=== PATIENT | female | born 1930 | race Caucasian/White ===

== ENCOUNTER → 2016-05-22 | Outpatient (CLI) | payer MEDICARE, OTHER ==
[~2016-05-22] MED LIST: AMBIEN 5MG TABLE5 MG; AMBIEN 5MG TABLE5 MG PO; ASPIRIN 81M81 MG/TA2 PO; AUGMENTIN XR 101 TER PO; BENICAR 20MG TA20 MG PO; BENICAR HCT 251 TAB PO; BETAPACE 80MG80 MG PO; BUMEX 1MG TA1 MG/TA1 PO; BUMEX0.5 MG PO; BYSTOLIC5 MG PO; CALCIUM 500500 M2 PO; CALCIUM 500500 MG PO; CLARITIN 1010 MG/TAB PO; COLACE 100100 MG/CAP PO; COMBIVENT INH14.7 GM IH; CORDARONE200 MG/TAB PO; COUMADIN 2MG2 MG/TAB PO; COUMADIN 3MG3 MG/TAB PO; COUMADIN 5MG5 MG/TAB PO; COUMADIN4 MG PO; COZAAR 50MG50 MG/TAB PO; DEMADEX 20MG20 M1 PO; DIOVAN PO; DOXYCYCLINE 10100 MG PO; FLAGYL500 MG PO; FLOVENT 110MCG7.9 GM IH; HCTZ 25MG TAB25 MG PO; HCTZ PO; HCTZ12.5TAB PO; KLOR-CON 1010 MEQ PO; LASIX 20MG TABL20 MG PO; LASIX 40MG TABL40 MG PO; LEVAQUIN 750MG750 M1 PO; LEVOTHYROXINE0.05 MG PO; LEVOXYL0.05 MG PO; LOPRESSOR 225 MG/TAB PO; LOVENOX100 MG/ML SC; MIRAPEX0.5 MG PO; MITIGARE0.6 MG; MULTIVITAMIN FO1 CAP PO; MULTIVITAMIN1 CTB PO; NASONEX SPRAY17 GM NS; NEXIUM 40MG40 MG PO; NORCO 325 MG-51 TAB PO; NORVASC2.5 MG PO; OSCAL 500 TAB500 MG PO; OYST CAL PO; PHILLIPS1 TAB PO; PREDNISONE 5MG5 MG PO; PREDNISONE1 MG PO; PREDNISONE20 MG PO; PREVACID 30MG30 M1 PO; PRIL40; PRIL40 PO; PRILOSEC 10MG10 MG PO; PRILOSEC 20MG20 MG PO; PROAIR HFA0.09 MG/AC IH; PROBIOTIC FORMU1 CAP PO; PROTONIX20 MG PO; RT SPIRIVA18 MCG IH; THEO-24 20200 MG/CAP PO; THEO-DUR 1100 MG/TAB PO; THEOPHYLINE; THYROXINE; TOPROL XL 25MG25 MG PO; TOPROL XL100 MG PO; TUMS500 MG PO; TYLENOL 325MG325 MG PO; TYLENOL PM 5001 CAP PO; ULTRAM 50MG TAB50 MG PO; VENTOLIN0.09 MG IH; VITAMIN C500 MG PO; ZAROXOLYN 2.52.5 MG PO; ZOLPIDEM TART5 MG PO; [UNRECOGNIZED DRUG - OTHER]
[2016-05-22 15:48] LABS: CALCIUM 9.4 mg/dL (8.4-10.2); CREATININE, serum 1.58 mg/dL (0.52-1.25); POTASSIUM 3.6 mmol/L (3.4-5.0)
== END ==
LOC: COL.LAB 14:39
PROVIDERS: Internal Medicine Nephrology
DX: N18.3 Chronic kidney disease, stage 3 (moderate) (principal)

== ENCOUNTER → 2016-08-13 | Outpatient (CLI) | payer MEDICARE, OTHER ==
[2016-08-13 12:49] LABS: CALCIUM 9.5 mg/dL (8.4-10.2); CREATININE, serum 1.43 mg/dL (0.52-1.25); POTASSIUM 4.1 mmol/L (3.4-5.0)
== END ==
LOC: COL.LAB 11:58
PROVIDERS: Internal Medicine Nephrology
DX: N18.2 Chronic kidney disease, stage 2 (mild) (principal)

== ENCOUNTER → 2016-08-30 | Outpatient (CLI) | payer MEDICARE, OTHER ==
[2016-08-30 13:39] LABS: CALCIUM 9.5 mg/dL (8.4-10.2); CREATININE, serum 1.5 mg/dL (0.52-1.25); POTASSIUM 3.5 mmol/L (3.4-5.0)
== END ==
LOC: COL.LAB 13:02
PROVIDERS: Internal Medicine Clinical Cardiac Electrophysiology
DX: N18.3 Chronic kidney disease, stage 3 (moderate) (principal)

== ENCOUNTER 2016-09-08 00:52 | Inpatient (IN) | payer MEDICARE, OTHER ==
[2016-09-08] VITALS (7 sets, daily range): BP systolic 115–155; BP diastolic 61–95; PULSE 88–110; TEMP 97.4–98
[~2016-09-08] VITALS: Ht 165.1 cm; Wt 73.0 kg
[~2016-09-08 00:52] MED LIST changes: -BUMEX 1MG TA1 MG/TA1 PO; -BUMEX0.5 MG PO; -CLARITIN 1010 MG/TAB PO; -DEMADEX 20MG20 M1 PO; -DOXYCYCLINE 10100 MG PO; -NASONEX SPRAY17 GM NS; -OSCAL 500 TAB500 MG PO; -PRILOSEC 20MG20 MG PO; -THEO-DUR 1100 MG/TAB PO; -TOPROL XL100 MG PO; -ZAROXOLYN 2.52.5 MG PO
[2016-09-08 01:33] LABS: ALLEN TEST NO; ARTERIAL BLD GAS O2 SATURATION 97.3 % (92-100); ARTERIAL BLOOD GAS BASE EXCESS 1.1 (-2-2); ARTERIAL BLOOD GAS HCO3 26.5 meq/L (22-26); ARTERIAL BLOOD GAS PO2 106.9 mmHg (80-100); ARTERIAL BLOOD GAS pH 7.38 (7.35-7.45); ATS? YES; OXYHEMOGLOBIN 97.1 %
[2016-09-08 01:56] LABS: BASO % 0.4 % (0.0-2.0); EOS # 0.2 (0.0-0.7); EOS % 1.7 % (0-4.0); GRAN % 70.6 % (42.2-75.2); LYMPH # 2.1 (1.2-3.4); LYMPH % 21.7 % (20.0-51.0); MEAN CELL VOLUME 88 fl (80.0-100.0); MEAN CORPUSCULAR HGB CONC 31 g/dl (33.0-37.0); MEAN PLATELET VOLUME 12.6 fl (7.4-10.4); MONO # 0.5 (0.1-0.6); MONO % 5.2 % (1.7-9.3); PLATELET COUNT 142 K/mm3 (130-400); RED BLOOD COUNT 4.11 M/mm3 (4.10-5.30); REDCELL DISTRIBUTION WIDTH-CV 18.5 % (11.5-14.5); WHITE BLOOD COUNT 9.9 K/mm3 (4.8-10.8)
[2016-09-08 01:58] LABS: HEMATOCRIT 36.1 % (37.0-47.0); HEMOGLOBIN 11.1 g/dl (12.5-16.0); MEAN CORPUSCULAR HEMOGLOBIN 27 pg (27.0-31.0)
[2016-09-08] MEDS ORDERED: TOPROL XL100 MG PO (01:59)
[2016-09-08] MEDS ORDERED: PRILOSEC 20MG20 MG PO (01:59)
[2016-09-08] MEDS ORDERED: THEO-DUR 1100 MG/TAB PO (02:00)
[2016-09-08] MEDS ORDERED: VITAMIN C500 MG PO (02:01)
[2016-09-08] MEDS ORDERED: DEMADEX 20MG20 M1 PO (02:01)
[2016-09-08 02:02] LABS: INR 2.9 (0.8-3.0); PROTHROMBIN TIME 32.7 SECONDS (9.7-12.8)
[2016-09-08 02:05] LABS: ADJUSTED CALCIUM 10.3 mg/dL (8.4-10.2); ALBUMIN 3.9 gm/dL (3.5-5.0); BILIRUBIN,TOTAL 0.8 mg/dL (0.0-1.0); CALCIUM 10.2 mg/dL (8.4-10.2); CREATININE, serum 1.27 mg/dL (0.52-1.25); PARTIAL THROMBOPLASTIN TIME 37.5 SECONDS (26.0-37.0); POTASSIUM 4.8 mmol/L (3.4-5.0); TOTAL PROTEIN 7.1 gm/dL (6.4-8.2)
[2016-09-08] MEDS ORDERED: COZAAR 50MG50 MG/TAB PO (02:06)
[2016-09-08] MEDS ORDERED: ZAROXOLYN 2.52.5 MG PO (02:07)
[2016-09-08 02:16] LABS: TROPONIN-I 0.033 ng/mL (0.000-0.034)
[2016-09-08] MEDS ORDERED: TYLENOL 325MG325 MG PO (03:46)
[2016-09-08] MEDS ORDERED: OSCAL 500 TAB500 MG PO (03:51)
[2016-09-08] MEDS ORDERED: COUMADIN4 MG PO (04:00)
[2016-09-09 00:10] VITALS: BP 133/72; PULSE 91; TEMP 97.5
[2016-09-09 04:29] VITALS: BP 145/67; PULSE 91; TEMP 97.4
[2016-09-09 07:28] LABS: CALCIUM 9.7 mg/dL (8.4-10.2); CREATININE, serum 1.5 mg/dL (0.52-1.25); MAGNESIUM 1.7 mg/dL (1.6-2.3); POTASSIUM 3.9 mmol/L (3.4-5.0)
[2016-09-09 07:31] LABS: BASO % 0.4 % (0.0-2.0); EOS # 0.2 (0.0-0.7); EOS % 2.4 % (0-4.0); GRAN # 6.5 (1.4-6.5); GRAN % 70.8 % (42.2-75.2); HEMATOCRIT 35.7 % (37.0-47.0); HEMOGLOBIN 10.7 g/dl (12.5-16.0); LYMPH # 1.7 (1.2-3.4); LYMPH % 18.2 % (20.0-51.0); MEAN CELL VOLUME 89 fl (80.0-100.0); MEAN CORPUSCULAR HEMOGLOBIN 27 pg (27.0-31.0); MEAN CORPUSCULAR HGB CONC 30 g/dl (33.0-37.0); MEAN PLATELET VOLUME 10.5 fl (7.4-10.4); MONO # 0.7 (0.1-0.6); MONO % 7.8 % (1.7-9.3); PLATELET COUNT 210 K/mm3 (130-400); RED BLOOD COUNT 4.03 M/mm3 (4.10-5.30); REDCELL DISTRIBUTION WIDTH-CV 18.4 % (11.5-14.5); WHITE BLOOD COUNT 9.2 K/mm3 (4.8-10.8)
[2016-09-09 07:35] VITALS: BP 124/65; PULSE 90; TEMP 97.9
[2016-09-09] MEDS ORDERED: BUMEX0.5 MG PO (09:46)
[2016-09-09 10:38] LABS: PROTHROMBIN TIME 34.4 SECONDS (9.7-12.8)
[2016-09-09 11:02] VITALS: BP 99/59; PULSE 83
== END 2016-09-09 14:04 | disposition home or self-care (01) | DRG 291 ==
LOC: COL.ER 00:52 → MEDICAL 02:45
PROVIDERS: Emergency Medicine; Family Medicine; Internal Medicine
DX: I13.0 Hypertensive heart and chronic kidney disease with heart failure and stage 1 through stage 4 chronic kidney disease, or unspecified chronic kidney disease (principal); I50.31 Acute diastolic (congestive) heart failure; J96.11 Chronic respiratory failure with hypoxia; E03.9 Hypothyroidism, unspecified; Z66 Do not resuscitate; J44.9 Chronic obstructive pulmonary disease, unspecified; N18.3 Chronic kidney disease, stage 3 (moderate); Z79.2 Long term (current) use of antibiotics; Z86.718 Personal history of other venous thrombosis and embolism; Z95.0 Presence of cardiac pacemaker; Z95.3 Presence of xenogenic heart valve; Z87.891 Personal history of nicotine dependence
CPT/HCPCS: 99223-AI; 99239; J1940

== ENCOUNTER 2016-10-05 23:25 | Inpatient (IN) | payer MEDICARE, OTHER ==
[~2016-10-05] VITALS: Ht 152.5 cm; Wt 70.3 kg
[~2016-10-05 23:25] MED LIST changes: +BUMEX0.5 MG PO; +DEMADEX 20MG20 M1 PO; +OSCAL 500 TAB500 MG PO; +PRILOSEC 20MG20 MG PO; +THEO-DUR 1100 MG/TAB PO; +TOPROL XL100 MG PO; +ZAROXOLYN 2.52.5 MG PO
[2016-10-06 00:06] LABS: BASO % 0.6 % (0.0-2.0); EOS # 0.2 (0.0-0.7); EOS % 2.1 % (0-4.0); GRAN # 4.9 (1.4-6.5); GRAN % 70.8 % (42.2-75.2); LYMPH # 1.4 (1.2-3.4); LYMPH % 19.9 % (20.0-51.0); MEAN CELL VOLUME 89 fl (80.0-100.0); MEAN CORPUSCULAR HGB CONC 31 g/dl (33.0-37.0); MEAN PLATELET VOLUME 11.4 fl (7.4-10.4); MONO # 0.4 (0.1-0.6); MONO % 6.2 % (1.7-9.3); PLATELET COUNT 199 K/mm3 (130-400); RED BLOOD COUNT 3.74 M/mm3 (4.10-5.30)
[2016-10-06 00:07] LABS: HEMATOCRIT 33.1 % (37.0-47.0); HEMOGLOBIN 10.3 g/dl (12.5-16.0); MEAN CORPUSCULAR HEMOGLOBIN 28 pg (27.0-31.0)
[2016-10-06 00:10] LABS: INR 2.9 (0.8-3.0); PROTHROMBIN TIME 32.7 SECONDS (9.7-12.8)
[2016-10-06 00:12] LABS: PARTIAL THROMBOPLASTIN TIME 39.4 SECONDS (26.0-37.0)
[2016-10-06 00:18] LABS: ADJUSTED CALCIUM 9.4 mg/dL (8.4-10.2); ALBUMIN 3.9 gm/dL (3.5-5.0); BILIRUBIN,TOTAL 0.5 mg/dL (0.0-1.0); CALCIUM 9.3 mg/dL (8.4-10.2); CREATININE, serum 1.82 mg/dL (0.52-1.25); POTASSIUM 3.8 mmol/L (3.4-5.0); TOTAL PROTEIN 6.9 gm/dL (6.4-8.2)
[2016-10-06 00:34] LABS: TROPONIN-I 0.05 ng/mL (0.000-0.034)
[2016-10-06 03:32] VITALS: BP 131/67; PULSE 93; TEMP 97.9
[2016-10-06] MEDS ORDERED: CLARITIN 1010 MG/TAB PO (04:00)
[2016-10-06] MEDS ORDERED: NASONEX SPRAY17 GM NS (04:01)
[2016-10-06 08:00] LABS: CALCIUM 9.5 mg/dL (8.4-10.2); CREATININE, serum 1.74 mg/dL (0.52-1.25); POTASSIUM 3.6 mmol/L (3.4-5.0)
[2016-10-06 08:17] LABS: TROPONIN-I 0.055 ng/mL (0.000-0.034)
[2016-10-06 08:36] VITALS: BP 112/67; PULSE 85; TEMP 97.5
[2016-10-06 13:10] VITALS: BP 103/59; PULSE 88; TEMP 97.9
[2016-10-06 16:59] VITALS: BP 134/83; PULSE 64; TEMP 98.1
[2016-10-06 20:26] VITALS: BP 142/68; PULSE 41; TEMP 97.9
[2016-10-07] VITALS (7 sets, daily range): BP systolic 100–122; BP diastolic 50–83; PULSE 40–82; TEMP 97.5–98.6
[2016-10-07 07:12] LABS: BASO % 0.5 % (0.0-2.0); EOS # 0.1 (0.0-0.7); EOS % 1.7 % (0-4.0); GRAN # 5.5 (1.4-6.5); GRAN % 66.7 % (42.2-75.2); LYMPH % 23.6 % (20.0-51.0); MEAN CELL VOLUME 89 fl (80.0-100.0); MEAN CORPUSCULAR HGB CONC 30 g/dl (33.0-37.0); MEAN PLATELET VOLUME 11.2 fl (7.4-10.4); MONO # 0.6 (0.1-0.6); MONO % 7.1 % (1.7-9.3); PLATELET COUNT 191 K/mm3 (130-400); RED BLOOD COUNT 3.65 M/mm3 (4.10-5.30); WHITE BLOOD COUNT 8.3 K/mm3 (4.8-10.8)
[2016-10-07 07:13] LABS: HEMATOCRIT 32.6 % (37.0-47.0); HEMOGLOBIN 9.9 g/dl (12.5-16.0); MEAN CORPUSCULAR HEMOGLOBIN 27 pg (27.0-31.0)
[2016-10-07 07:26] LABS: INR 2.7 (0.8-3.0); PROTHROMBIN TIME 31.4 SECONDS (9.7-12.8)
[2016-10-07 07:29] LABS: CALCIUM 9.2 mg/dL (8.4-10.2); CREATININE, serum 1.79 mg/dL (0.52-1.25); POTASSIUM 3.4 mmol/L (3.4-5.0)
[2016-10-08] VITALS (12 sets, daily range): BP systolic 75–117; BP diastolic 42–62; PULSE 53–83; TEMP 97.4–98.7
[2016-10-08 07:06] LABS: BASO # 0.1 (0.0-0.2); BASO % 0.7 % (0.0-2.0); EOS # 0.3 (0.0-0.7); INR 2.8 (0.8-3.0); LYMPH # 2.1 (1.2-3.4); LYMPH % 25.5 % (20.0-51.0); MEAN CELL VOLUME 89 fl (80.0-100.0); MEAN CORPUSCULAR HGB CONC 31 g/dl (33.0-37.0); MEAN PLATELET VOLUME 10.6 fl (7.4-10.4); MONO # 0.6 (0.1-0.6); MONO % 7.6 % (1.7-9.3); PLATELET COUNT 214 K/mm3 (130-400); PROTHROMBIN TIME 32.1 SECONDS (9.7-12.8); RED BLOOD COUNT 4.05 M/mm3 (4.10-5.30); REDCELL DISTRIBUTION WIDTH-CV 18.3 % (11.5-14.5)
[2016-10-08 07:15] LABS: HEMATOCRIT 36.1 % (37.0-47.0); HEMOGLOBIN 11.1 g/dl (12.5-16.0); MEAN CORPUSCULAR HEMOGLOBIN 27 pg (27.0-31.0)
[2016-10-08 07:19] LABS: CALCIUM 9.4 mg/dL (8.4-10.2); CREATININE, serum 1.81 mg/dL (0.52-1.25)
[2016-10-09 03:14] VITALS: BP 122/64; PULSE 57; TEMP 97.1
[2016-10-09 06:28] LABS: BASO # 0.1 (0.0-0.2); BASO % 0.7 % (0.0-2.0); EOS # 0.4 (0.0-0.7); EOS % 5.2 % (0-4.0); GRAN # 4.2 (1.4-6.5); GRAN % 59.7 % (42.2-75.2); LYMPH # 1.9 (1.2-3.4); LYMPH % 26.9 % (20.0-51.0); MEAN CELL VOLUME 90 fl (80.0-100.0); MEAN CORPUSCULAR HGB CONC 30 g/dl (33.0-37.0); MEAN PLATELET VOLUME 10.6 fl (7.4-10.4); MONO # 0.5 (0.1-0.6); MONO % 7.2 % (1.7-9.3); PLATELET COUNT 215 K/mm3 (130-400); RED BLOOD COUNT 3.71 M/mm3 (4.10-5.30); REDCELL DISTRIBUTION WIDTH-CV 18.4 % (11.5-14.5)
[2016-10-09 06:33] LABS: INR 2.8 (0.8-3.0); PROTHROMBIN TIME 32.2 SECONDS (9.7-12.8)
[2016-10-09 06:46] LABS: HEMATOCRIT 33.2 % (37.0-47.0); HEMOGLOBIN 10.1 g/dl (12.5-16.0); MEAN CORPUSCULAR HEMOGLOBIN 27 pg (27.0-31.0)
[2016-10-09 06:52] LABS: CALCIUM 9.2 mg/dL (8.4-10.2); CREATININE, serum 2.06 mg/dL (0.52-1.25); POTASSIUM 4.2 mmol/L (3.4-5.0)
[2016-10-09 07:39] VITALS: BP 124/78; PULSE 79; TEMP 97
[2016-10-09 11:58] VITALS: BP 105/55; PULSE 73
[2016-10-09 15:39] VITALS: BP 117/59; PULSE 70; TEMP 98
[2016-10-09 20:04] VITALS: BP 114/49; PULSE 74; TEMP 98.2
[2016-10-10 00:08] VITALS: BP 101/55; PULSE 80; TEMP 97.2
[2016-10-10 03:18] VITALS: BP 114/47; PULSE 69; TEMP 98
[2016-10-10 07:08] LABS: BASO % 0.4 % (0.0-2.0); EOS # 0.3 (0.0-0.7); EOS % 3.6 % (0-4.0); GRAN # 4.8 (1.4-6.5); GRAN % 63.3 % (42.2-75.2); LYMPH % 26.7 % (20.0-51.0); MEAN CELL VOLUME 90 fl (80.0-100.0); MEAN CORPUSCULAR HGB CONC 30 g/dl (33.0-37.0); MEAN PLATELET VOLUME 11.3 fl (7.4-10.4); MONO # 0.4 (0.1-0.6); MONO % 5.7 % (1.7-9.3); PLATELET COUNT 226 K/mm3 (130-400); RED BLOOD COUNT 3.76 M/mm3 (4.10-5.30); REDCELL DISTRIBUTION WIDTH-CV 18.4 % (11.5-14.5); WHITE BLOOD COUNT 7.6 K/mm3 (4.8-10.8)
[2016-10-10 07:12] LABS: CALCIUM 9.4 mg/dL (8.4-10.2); CREATININE, serum 2.08 mg/dL (0.52-1.25); POTASSIUM 4.1 mmol/L (3.4-5.0)
[2016-10-10 07:15] LABS: INR 2.9 (0.8-3.0); PROTHROMBIN TIME 33.7 SECONDS (9.7-12.8)
[2016-10-10 07:19] VITALS: BP 107/48; PULSE 76; TEMP 97.3
[2016-10-10 07:23] LABS: HEMATOCRIT 33.8 % (37.0-47.0); HEMOGLOBIN 10.2 g/dl (12.5-16.0); MEAN CORPUSCULAR HEMOGLOBIN 27 pg (27.0-31.0)
[2016-10-10] MEDS ORDERED: BUMEX 1MG TA1 MG/TA1 PO (10:36)
[2016-10-10 11:45] VITALS: BP 121/64; PULSE 76; TEMP 97.5
== END 2016-10-10 12:30 | disposition home health service (06) | DRG 291 ==
LOC: COL.ER 23:25 → MEDICAL 10-06 03:02
PROVIDERS: Family Medicine; Internal Medicine Cardiovascular Disease; Nurse Practitioner Family
DX: I13.0 Hypertensive heart and chronic kidney disease with heart failure and stage 1 through stage 4 chronic kidney disease, or unspecified chronic kidney disease (principal); I50.33 Acute on chronic diastolic (congestive) heart failure; J96.11 Chronic respiratory failure with hypoxia; N18.3 Chronic kidney disease, stage 3 (moderate); J44.9 Chronic obstructive pulmonary disease, unspecified; E03.9 Hypothyroidism, unspecified; D64.9 Anemia, unspecified; I20.9 Angina pectoris, unspecified; Z66 Do not resuscitate; I48.2 Chronic atrial fibrillation; Z86.718 Personal history of other venous thrombosis and embolism; Z87.891 Personal history of nicotine dependence; Z79.01 Long term (current) use of anticoagulants; Z95.3 Presence of xenogenic heart valve
CPT/HCPCS: 99223-AI; 99232-AI; 99239; A9502; J2405; J2785; J7050

== ENCOUNTER 2016-11-12 12:25 | Emergency (ER) | payer MEDICARE, OTHER ==
[~2016-11-12] VITALS: Ht 165.1 cm; Wt 69.5 kg
[~2016-11-12 12:25] MED LIST changes: +BUMEX 1MG TA1 MG/TA1 PO; +CLARITIN 1010 MG/TAB PO; +NASONEX SPRAY17 GM NS
[2016-11-12 12:33] VITALS: TEMP 98.1
[2016-11-12 13:54] LABS: BASO % 0.4 % (0.0-2.0); EOS # 0.1 (0.0-0.7); GRAN # 8.6 (1.4-6.5); GRAN % 76.4 % (42.2-75.2); LYMPH # 1.6 (1.2-3.4); LYMPH % 14.1 % (20.0-51.0); MEAN CELL VOLUME 91 fl (80.0-100.0); MEAN CORPUSCULAR HGB CONC 31 g/dl (33.0-37.0); MEAN PLATELET VOLUME 10.8 fl (7.4-10.4); MONO # 0.9 (0.1-0.6); MONO % 7.8 % (1.7-9.3); PLATELET COUNT 204 K/mm3 (130-400); RED BLOOD COUNT 3.92 M/mm3 (4.10-5.30); WHITE BLOOD COUNT 11.3 K/mm3 (4.8-10.8)
[2016-11-12 13:55] LABS: HEMATOCRIT 35.6 % (37.0-47.0); MEAN CORPUSCULAR HEMOGLOBIN 28 pg (27.0-31.0)
[2016-11-12 14:21] LABS: ERYTHROCYTE SEDIMENTATION RATE 22 mm/hr (0-30)
[2016-11-12] MEDS ORDERED: DOXYCYCLINE 10100 MG PO (14:43)
[2016-11-12 14:52] LABS: INR 2.8 (0.8-3.0); PROTHROMBIN TIME 32.8 SECONDS (9.7-12.8)
[2016-11-12 15:11] VITALS: BP 110/68; PULSE 70
== END 2016-11-12 15:24 | disposition home or self-care (01) ==
LOC: COL.ER 12:25
PROVIDERS: Physician Assistant
DX: L03.115 Cellulitis of right lower limb (principal); I25.10 Atherosclerotic heart disease of native coronary artery without angina pectoris; I10 Essential (primary) hypertension; Z95.0 Presence of cardiac pacemaker; Z95.2 Presence of prosthetic heart valve; Z79.01 Long term (current) use of anticoagulants; J44.9 Chronic obstructive pulmonary disease, unspecified; I48.91 Unspecified atrial fibrillation

== ENCOUNTER 2016-11-27 17:00 | Emergency (ER) | payer MEDICARE, OTHER ==
[~2016-11-27] VITALS: Ht 165.1 cm; Wt 70.9 kg
[2016-11-27 17:03] VITALS: TEMP 98.1
[2016-11-27 18:04] LABS: BASO % 0.5 % (0.0-2.0); EOS # 0.2 (0.0-0.7); EOS % 1.9 % (0-4.0); GRAN # 6.1 (1.4-6.5); GRAN % 69.3 % (42.2-75.2); MEAN CELL VOLUME 92 fl (80.0-100.0); MEAN CORPUSCULAR HGB CONC 31 g/dl (33.0-37.0); MEAN PLATELET VOLUME 11.2 fl (7.4-10.4); MONO # 0.5 (0.1-0.6); MONO % 5.8 % (1.7-9.3); PLATELET COUNT 204 K/mm3 (130-400); RED BLOOD COUNT 3.95 M/mm3 (4.10-5.30); WHITE BLOOD COUNT 8.9 K/mm3 (4.8-10.8)
[2016-11-27 18:06] LABS: INR 3.6 (0.8-3.0); PROTHROMBIN TIME 41.9 SECONDS (9.7-12.8)
[2016-11-27 18:07] LABS: HEMATOCRIT 36.3 % (37.0-47.0); HEMOGLOBIN 11.1 g/dl (12.5-16.0); MEAN CORPUSCULAR HEMOGLOBIN 28 pg (27.0-31.0)
[2016-11-27 18:12] LABS: ALBUMIN 3.8 gm/dL (3.5-5.0); BILIRUBIN,TOTAL 0.5 mg/dL (0.0-1.0); CALCIUM 9.8 mg/dL (8.4-10.2); CREATININE, serum 1.62 mg/dL (0.52-1.25)
[2016-11-27 18:24] LABS: TROPONIN-I 0.032 ng/mL (0.000-0.034)
[2016-11-27 18:58] VITALS: BP 122/68; PULSE 70
== END 2016-11-27 18:58 | disposition home or self-care (01) ==
LOC: COL.ER 17:00
PROVIDERS: Emergency Medicine
DX: R07.9 Chest pain, unspecified (principal); I10 Essential (primary) hypertension; Z95.2 Presence of prosthetic heart valve; Z79.01 Long term (current) use of anticoagulants; Z86.718 Personal history of other venous thrombosis and embolism; Z99.81 Dependence on supplemental oxygen; R79.89 Other specified abnormal findings of blood chemistry

== ENCOUNTER → 2016-11-27 | Outpatient (CLI) | payer MEDICARE, OTHER ==
[~2016-11-27] MED LIST changes: +DOXYCYCLINE 10100 MG PO
== END ==
LOC: COL.RAD 15:00
DX: R53.1 Weakness (principal)

== ENCOUNTER 2017-01-14 14:15 | Inpatient (IN) | payer MEDICARE, OTHER ==
[~2017-01-14] VITALS: Ht 165.1 cm; Wt 72.8 kg
[2017-01-14] MEDS ORDERED: COUMADIN 2MG2 MG/TAB PO (16:15)
[2017-01-14 16:22] LABS: BASO % 0.4 % (0.0-2.0); EOS # 0.1 (0.0-0.7); EOS % 0.5 % (0-4.0); GRAN # 8.3 (1.4-6.5); GRAN % 83.9 % (42.2-75.2); LYMPH # 0.8 (1.2-3.4); LYMPH % 8.2 % (20.0-51.0); MEAN CELL VOLUME 94 fl (80.0-100.0); MEAN CORPUSCULAR HEMOGLOBIN 28 pg (27.0-31.0); MEAN CORPUSCULAR HGB CONC 30 g/dl (33.0-37.0); MONO # 0.7 (0.1-0.6); MONO % 6.7 % (1.7-9.3); PLATELET COUNT 196 K/mm3 (130-400); RED BLOOD COUNT 3.25 M/mm3 (4.10-5.30)
[2017-01-14 16:23] LABS: HEMATOCRIT 30.5 % (37.0-47.0)
[2017-01-14 16:25] LABS: INR 2.6 (0.8-3.0); PROTHROMBIN TIME 29.5 SECONDS (9.7-12.8)
[2017-01-14 16:27] LABS: PARTIAL THROMBOPLASTIN TIME 34.2 SECONDS (26.0-37.0)
[2017-01-14 16:38] LABS: ADJUSTED CALCIUM 9.7 mg/dL (8.4-10.2); ALBUMIN 3.9 gm/dL (3.5-5.0); BILIRUBIN,TOTAL 0.8 mg/dL (0.0-1.0); CALCIUM 9.6 mg/dL (8.4-10.2); CREATININE, serum 1.26 mg/dL (0.52-1.25); POTASSIUM 3.9 mmol/L (3.4-5.0)
[2017-01-14 16:51] LABS: TROPONIN-I 0.042 ng/mL (0.000-0.034)
[2017-01-14 21:09] LABS: THYROID STIMULATING HORMONE 1.14 uIU/mL (0.465-4.680)
[2017-01-14 21:25] VITALS: BP 162/76; PULSE 74; TEMP 97
[2017-01-14 23:55] VITALS: BP 132/67; PULSE 72; TEMP 97.3
[2017-01-15 01:35] LABS: PH 5 (5-8); SQUAMOUS EPITHELIAL 0-2 /hpf; URINE APPEARANCE Clear; URINE BACTERIA None Seen /hpf; URINE BILIRUBIN Negative (NEGATIVE); URINE BLOOD Negative (NEGATIVE); URINE COLOR Yellow; URINE GLUCOSE Negative (NEGATIVE); URINE KETONE Negative (NEGATIVE); URINE RBC None Seen /hpf; URINE UROBILINOGEN Negative (NEGATIVE); URINE WBC 0-2 /hpf
[2017-01-15 04:14] VITALS: BP 133/84; PULSE 72; TEMP 97.8
[2017-01-15 07:56] VITALS: BP 147/76; PULSE 70; TEMP 98.4
[2017-01-15 10:26] LABS: CALCIUM 9.2 mg/dL (8.4-10.2); CREATININE, serum 1.26 mg/dL (0.52-1.25); MAGNESIUM 2.1 mg/dL (1.6-2.3); POTASSIUM 3.7 mmol/L (3.4-5.0)
[2017-01-15 12:01] VITALS: BP 145/75; PULSE 75; TEMP 97.7
[2017-01-15 15:42] VITALS: BP 156/88; PULSE 77; TEMP 97.6
[2017-01-15 19:41] VITALS: BP 145/65; PULSE 75; TEMP 98.1
[2017-01-15 23:31] VITALS: BP 142/71; PULSE 71; TEMP 98
[2017-01-16 03:42] VITALS: BP 139/79; PULSE 73; TEMP 97.4
[2017-01-16 07:42] VITALS: BP 127/67; PULSE 77; TEMP 97.7
[2017-01-16 10:42] LABS: CALCIUM 9.2 mg/dL (8.4-10.2); CREATININE, serum 1.36 mg/dL (0.52-1.25); POTASSIUM 3.4 mmol/L (3.4-5.0)
[2017-01-16 11:38] VITALS: BP 141/78; PULSE 72; TEMP 97.8
[2017-01-16 15:10] VITALS: BP 139/71; PULSE 73; TEMP 97.7
[2017-01-16 20:00] VITALS: BP 151/72; PULSE 74; TEMP 97.4
[2017-01-16 23:31] VITALS: BP 145/66; PULSE 72; TEMP 97.8
[2017-01-17 03:26] VITALS: BP 130/65; PULSE 72; TEMP 98.9
[2017-01-17 07:08] LABS: INR 2.6 (0.8-3.0); PROTHROMBIN TIME 30.5 SECONDS (9.7-12.8)
[2017-01-17 07:15] LABS: CREATININE, serum 1.27 mg/dL (0.52-1.25); MAGNESIUM 1.9 mg/dL (1.6-2.3); POTASSIUM 3.5 mmol/L (3.4-5.0)
[2017-01-17 07:32] VITALS: BP 122/73; PULSE 65; TEMP 98.3
[2017-01-17 12:37] VITALS: BP 132/61; PULSE 73; TEMP 98.5
[2017-01-17 15:58] VITALS: BP 138/76; PULSE 73; TEMP 97.7
[2017-01-17 21:29] VITALS: BP 131/55; PULSE 72; TEMP 99
[2017-01-17 23:15] VITALS: BP 135/69; PULSE 72; TEMP 98.2
[2017-01-18 04:30] VITALS: BP 124/62; PULSE 56; TEMP 97.8
[2017-01-18 07:12] LABS: CREATININE, serum 1.39 mg/dL (0.52-1.25); MAGNESIUM 2.1 mg/dL (1.6-2.3); POTASSIUM 3.5 mmol/L (3.4-5.0)
[2017-01-18 07:46] VITALS: BP 131/74; PULSE 76; TEMP 98.1
[2017-01-18 08:21] LABS: INR 2.5 (0.8-3.0); PROTHROMBIN TIME 28.2 SECONDS (9.7-12.8)
[2017-01-18] MEDS ORDERED: ZAROXOLYN 2.52.5 MG PO (09:52)
== END 2017-01-18 12:45 | disposition home health service (06) | DRG 291 ==
LOC: COL.ER 14:15 → MEDICAL 17:20
PROVIDERS: Emergency Medicine; Internal Medicine; Nurse Practitioner
DX: I13.0 Hypertensive heart and chronic kidney disease with heart failure and stage 1 through stage 4 chronic kidney disease, or unspecified chronic kidney disease (principal); I50.33 Acute on chronic diastolic (congestive) heart failure; Z66 Do not resuscitate; N18.3 Chronic kidney disease, stage 3 (moderate); I48.0 Paroxysmal atrial fibrillation; J44.9 Chronic obstructive pulmonary disease, unspecified; Z95.2 Presence of prosthetic heart valve; Z95.0 Presence of cardiac pacemaker; I25.10 Atherosclerotic heart disease of native coronary artery without angina pectoris; Z87.891 Personal history of nicotine dependence; J45.909 Unspecified asthma, uncomplicated; I27.2 Other secondary pulmonary hypertension; Z79.01 Long term (current) use of anticoagulants
CPT/HCPCS: 99223-AI; 99232-AI; 99239

== ENCOUNTER → 2017-01-22 | Outpatient (CLI) | payer MEDICARE, OTHER ==
[2017-01-22 09:08] LABS: CALCIUM 9.3 mg/dL (8.4-10.2); CREATININE, serum 1.26 mg/dL (0.52-1.25); POTASSIUM 4.1 mmol/L (3.4-5.0)
== END ==
LOC: COL.LAB 08:15
PROVIDERS: Internal Medicine
DX: I50.9 Heart failure, unspecified (principal)

== ENCOUNTER 2017-04-05 22:25 | Inpatient (IN) | payer MEDICARE, OTHER ==
[~2017-04-05] VITALS: Ht 165.1 cm; Wt 70.8 kg
[2017-04-05 23:00] LABS: BASO % 0.4 % (0.0-2.0); EOS # 0.1 (0.0-0.7); EOS % 1.7 % (0-4.0); GRAN # 6.7 (1.4-6.5); GRAN % 80.3 % (42.2-75.2); LYMPH % 11.8 % (20.0-51.0); MEAN CELL VOLUME 95 fl (80.0-100.0); MEAN CORPUSCULAR HGB CONC 28 g/dl (33.0-37.0); MEAN PLATELET VOLUME 10.3 fl (7.4-10.4); MONO # 0.5 (0.1-0.6); MONO % 5.6 % (1.7-9.3); PLATELET COUNT 188 K/mm3 (130-400); RED BLOOD COUNT 3.06 M/mm3 (4.10-5.30); WHITE BLOOD COUNT 8.4 K/mm3 (4.8-10.8)
[2017-04-05 23:05] LABS: HEMOGLOBIN 8.2 g/dl (12.5-16.0); MEAN CORPUSCULAR HEMOGLOBIN 27 pg (27.0-31.0)
[2017-04-05 23:07] LABS: INR 1.6 (0.8-3.0); PROTHROMBIN TIME 17.8 SECONDS (9.7-12.8)
[2017-04-05 23:10] LABS: ADJUSTED CALCIUM 9.5 mg/dL (8.4-10.2); BILIRUBIN,TOTAL 0.3 mg/dL (0.0-1.0); CALCIUM 9.5 mg/dL (8.4-10.2); CREATININE, serum 1.65 mg/dL (0.52-1.25); POTASSIUM 4.3 mmol/L (3.4-5.0); TOTAL PROTEIN 6.8 gm/dL (6.4-8.2)
[2017-04-05 23:27] LABS: TROPONIN-I 0.036 ng/mL (0.000-0.034)
[2017-04-06 02:58] LABS: MAGNESIUM 2.4 mg/dL (1.6-2.3); PHOSPHOROUS 3.7 mg/dL (2.5-4.5)
[2017-04-06 03:30] LABS: THYROID STIMULATING HORMONE 1.21 uIU/mL (0.465-4.680)
[2017-04-06 03:40] VITALS: BP 142/77; PULSE 65; TEMP 97.8
[2017-04-06 07:30] LABS: BASO % 0.4 % (0.0-2.0); EOS # 0.1 (0.0-0.7); EOS % 1.5 % (0-4.0); GRAN # 5.5 (1.4-6.5); GRAN % 75.4 % (42.2-75.2); HEMATOCRIT 27.6 % (37.0-47.0); HEMOGLOBIN 7.9 g/dl (12.5-16.0); LYMPH # 1.2 (1.2-3.4); LYMPH % 16.1 % (20.0-51.0); MEAN CELL VOLUME 94 fl (80.0-100.0); MEAN CORPUSCULAR HEMOGLOBIN 27 pg (27.0-31.0); MEAN CORPUSCULAR HGB CONC 29 g/dl (33.0-37.0); MEAN PLATELET VOLUME 10.6 fl (7.4-10.4); MONO # 0.5 (0.1-0.6); MONO % 6.3 % (1.7-9.3); PLATELET COUNT 193 K/mm3 (130-400); RED BLOOD COUNT 2.93 M/mm3 (4.10-5.30); WHITE BLOOD COUNT 7.3 K/mm3 (4.8-10.8)
[2017-04-06 07:31] LABS: INR 1.7 (0.8-3.0); PROTHROMBIN TIME 18.9 SECONDS (9.7-12.8)
[2017-04-06 07:38] LABS: CALCIUM 9.7 mg/dL (8.4-10.2); CREATININE, serum 1.59 mg/dL (0.52-1.25); POTASSIUM 4.1 mmol/L (3.4-5.0)
[2017-04-06 07:54] LABS: TROPONIN-I 0.035 ng/mL (0.000-0.034)
[2017-04-06 08:57] VITALS: BP 121/59; PULSE 70; TEMP 98
[2017-04-06 11:46] VITALS: BP 129/65; PULSE 72; TEMP 97.2
[2017-04-06 15:32] VITALS: BP 136/69; PULSE 71; TEMP 97.9
[2017-04-06 19:38] VITALS: BP 146/62; PULSE 73; TEMP 97.9
[2017-04-07 00:01] VITALS: BP 142/70; PULSE 78; TEMP 98.1
[2017-04-07 03:47] VITALS: BP 144/91; PULSE 74; TEMP 97.8
[2017-04-07 07:03] LABS: BASO % 0.4 % (0.0-2.0); EOS # 0.1 (0.0-0.7); EOS % 1.7 % (0-4.0); GRAN # 5.4 (1.4-6.5); GRAN % 72.3 % (42.2-75.2); LYMPH # 1.5 (1.2-3.4); LYMPH % 19.4 % (20.0-51.0); MEAN CELL VOLUME 92 fl (80.0-100.0); MEAN CORPUSCULAR HGB CONC 29 g/dl (33.0-37.0); MEAN PLATELET VOLUME 10.3 fl (7.4-10.4); MONO # 0.4 (0.1-0.6); MONO % 5.9 % (1.7-9.3); PLATELET COUNT 205 K/mm3 (130-400); RED BLOOD COUNT 3.18 M/mm3 (4.10-5.30); WHITE BLOOD COUNT 7.5 K/mm3 (4.8-10.8)
[2017-04-07 07:13] LABS: HEMATOCRIT 29.3 % (37.0-47.0); HEMOGLOBIN 8.6 g/dl (12.5-16.0); MEAN CORPUSCULAR HEMOGLOBIN 27 pg (27.0-31.0)
[2017-04-07 07:36] LABS: CALCIUM 10.2 mg/dL (8.4-10.2); CREATININE, serum 1.49 mg/dL (0.52-1.25); POTASSIUM 4.1 mmol/L (3.4-5.0)
[2017-04-07 08:25] VITALS: BP 127/67; PULSE 73; TEMP 97.9
[2017-04-07 11:53] VITALS: BP 129/60; PULSE 71; TEMP 97.1
[2017-04-07 15:48] LABS: INR 1.8 (0.8-3.0)
[2017-04-07 16:05] VITALS: BP 135/59; PULSE 72; TEMP 98.2
[2017-04-07 20:47] VITALS: BP 131/63; PULSE 73; TEMP 98.2
[2017-04-08 00:42] VITALS: BP 130/73; PULSE 55; TEMP 97.6
[2017-04-08 05:28] VITALS: BP 130/70; PULSE 68; TEMP 97.8
[2017-04-08 07:44] VITALS: BP 121/80; PULSE 70; TEMP 98.2
[2017-04-08 09:15] LABS: BASO % 0.4 % (0.0-2.0); EOS # 0.2 (0.0-0.7); EOS % 2.5 % (0-4.0); GRAN # 5.1 (1.4-6.5); GRAN % 73.6 % (42.2-75.2); LYMPH # 1.1 (1.2-3.4); LYMPH % 15.8 % (20.0-51.0); MEAN CELL VOLUME 91 fl (80.0-100.0); MEAN CORPUSCULAR HGB CONC 29 g/dl (33.0-37.0); MEAN PLATELET VOLUME 10.7 fl (7.4-10.4); MONO # 0.5 (0.1-0.6); MONO % 7.4 % (1.7-9.3); PLATELET COUNT 215 K/mm3 (130-400); RED BLOOD COUNT 3.37 M/mm3 (4.10-5.30); WHITE BLOOD COUNT 6.9 K/mm3 (4.8-10.8)
[2017-04-08 09:20] LABS: INR 1.9 (0.8-3.0); PROTHROMBIN TIME 21.1 SECONDS (9.7-12.8)
[2017-04-08 09:22] LABS: HEMATOCRIT 30.8 % (37.0-47.0); HEMOGLOBIN 8.9 g/dl (12.5-16.0); MEAN CORPUSCULAR HEMOGLOBIN 26 pg (27.0-31.0)
[2017-04-08 09:32] LABS: CALCIUM 10.1 mg/dL (8.4-10.2); CREATININE, serum 1.55 mg/dL (0.52-1.25); POTASSIUM 3.9 mmol/L (3.4-5.0)
[2017-04-08 12:00] VITALS: BP 115/62; PULSE 70; TEMP 98
[2017-04-08 16:04] VITALS: BP 148/68; PULSE 70; TEMP 98.7
[2017-04-08 18:20] VITALS: BP 131/56; PULSE 73; TEMP 97.9
[2017-04-09 04:24] VITALS: BP 150/71; PULSE 79; TEMP 98.3
[2017-04-09 06:46] LABS: BASO % 0.3 % (0.0-2.0); EOS # 0.3 (0.0-0.7); EOS % 3.5 % (0-4.0); GRAN # 6.6 (1.4-6.5); GRAN % 74.5 % (42.2-75.2); LYMPH # 1.2 (1.2-3.4); LYMPH % 13.5 % (20.0-51.0); MEAN CELL VOLUME 93 fl (80.0-100.0); MEAN CORPUSCULAR HGB CONC 28 g/dl (33.0-37.0); MEAN PLATELET VOLUME 10.2 fl (7.4-10.4); MONO # 0.7 (0.1-0.6); MONO % 7.9 % (1.7-9.3); PLATELET COUNT 224 K/mm3 (130-400); RED BLOOD COUNT 3.29 M/mm3 (4.10-5.30); WHITE BLOOD COUNT 8.8 K/mm3 (4.8-10.8)
[2017-04-09 06:49] LABS: HEMATOCRIT 30.7 % (37.0-47.0); HEMOGLOBIN 8.7 g/dl (12.5-16.0); MEAN CORPUSCULAR HEMOGLOBIN 26 pg (27.0-31.0)
[2017-04-09 06:54] LABS: PROTHROMBIN TIME 22.3 SECONDS (9.7-12.8)
[2017-04-09 07:04] LABS: CALCIUM 9.9 mg/dL (8.4-10.2); CREATININE, serum 1.58 mg/dL (0.52-1.25); MAGNESIUM 2.2 mg/dL (1.6-2.3)
[2017-04-09 07:11] LABS: POTASSIUM 3.7 mmol/L (3.4-5.0)
[2017-04-09 08:33] VITALS: BP 116/47; PULSE 71; TEMP 97.8
[2017-04-09 11:50] VITALS: BP 134/53; PULSE 71; TEMP 97.6
[2017-04-09 13:03] LABS: RETIC % 1.7 % (0.5-3.52)
[2017-04-09 16:58] VITALS: BP 134/55; PULSE 72; TEMP 97.9
[2017-04-09 20:31] VITALS: BP 152/63; PULSE 73; TEMP 98.1
[2017-04-10] VITALS (7 sets, daily range): BP systolic 97–129; BP diastolic 50–69; PULSE 65–88; TEMP 97.4–98.3
[2017-04-10 07:04] LABS: INR 2.1 (0.8-3.0); PROTHROMBIN TIME 24.5 SECONDS (9.7-12.8)
[2017-04-10 07:13] LABS: BASO # 0.1 (0.0-0.2); BASO % 0.5 % (0.0-2.0); EOS # 0.5 (0.0-0.7); EOS % 4.2 % (0-4.0); GRAN # 7.7 (1.4-6.5); GRAN % 72.7 % (42.2-75.2); LYMPH # 1.5 (1.2-3.4); LYMPH % 14.3 % (20.0-51.0); MEAN CELL VOLUME 91 fl (80.0-100.0); MEAN CORPUSCULAR HGB CONC 29 g/dl (33.0-37.0); MEAN PLATELET VOLUME 10.5 fl (7.4-10.4); MONO # 0.8 (0.1-0.6); MONO % 7.9 % (1.7-9.3); PLATELET COUNT 245 K/mm3 (130-400); RED BLOOD COUNT 3.58 M/mm3 (4.10-5.30); WHITE BLOOD COUNT 10.6 K/mm3 (4.8-10.8)
[2017-04-10 07:14] LABS: CREATININE, serum 1.45 mg/dL (0.52-1.25); MAGNESIUM 2.1 mg/dL (1.6-2.3); POTASSIUM 3.6 mmol/L (3.4-5.0)
[2017-04-10 07:16] LABS: HEMATOCRIT 32.6 % (37.0-47.0); HEMOGLOBIN 9.4 g/dl (12.5-16.0); MEAN CORPUSCULAR HEMOGLOBIN 26 pg (27.0-31.0)
[2017-04-10] MEDS ORDERED: CEPHALEXIN500 M1 PO (21:16)
[2017-04-11 03:25] VITALS: BP 128/67; PULSE 79; TEMP 97.2
[2017-04-11 06:33] LABS: BASO % 0.4 % (0.0-2.0); EOS # 0.3 (0.0-0.7); EOS % 3.1 % (0-4.0); GRAN # 7.7 (1.4-6.5); GRAN % 75.9 % (42.2-75.2); LYMPH # 1.3 (1.2-3.4); LYMPH % 12.5 % (20.0-51.0); MEAN CELL VOLUME 91 fl (80.0-100.0); MEAN CORPUSCULAR HGB CONC 29 g/dl (33.0-37.0); MEAN PLATELET VOLUME 10.8 fl (7.4-10.4); MONO # 0.8 (0.1-0.6); MONO % 7.7 % (1.7-9.3); PLATELET COUNT 253 K/mm3 (130-400); RED BLOOD COUNT 3.64 M/mm3 (4.10-5.30); WHITE BLOOD COUNT 10.2 K/mm3 (4.8-10.8)
[2017-04-11 06:36] LABS: INR 2.2 (0.8-3.0); PROTHROMBIN TIME 25.6 SECONDS (9.7-12.8)
[2017-04-11 06:38] LABS: HEMATOCRIT 33.2 % (37.0-47.0); HEMOGLOBIN 9.6 g/dl (12.5-16.0); MEAN CORPUSCULAR HEMOGLOBIN 26 pg (27.0-31.0)
[2017-04-11 06:47] LABS: CALCIUM 10.2 mg/dL (8.4-10.2); CREATININE, serum 1.58 mg/dL (0.52-1.25); MAGNESIUM 2.4 mg/dL (1.6-2.3); POTASSIUM 3.5 mmol/L (3.4-5.0)
[2017-04-11 07:37] VITALS: BP 125/50; PULSE 72; TEMP 98.1
[2017-04-11 11:52] VITALS: BP 107/51; PULSE 70; TEMP 97.7
[2017-04-11] MEDS ORDERED: TOPROL XL 50MG50 MG PO (14:40)
[2017-04-11 16:36] VITALS: BP 115/53; PULSE 75; TEMP 97.8
[2017-04-11 20:47] VITALS: BP 106/51; PULSE 67; TEMP 98
[2017-04-12 01:08] VITALS: BP 116/61; PULSE 78; TEMP 97.6
[2017-04-12 04:30] VITALS: BP 128/65; PULSE 56; TEMP 97.7
[2017-04-12 07:46] VITALS: BP 124/61; PULSE 57; TEMP 98
[2017-04-12] MEDS ORDERED: BUMEX2 MG PO (10:08)
[2017-04-12] MEDS ORDERED: ZAROXOLYN 2.52.5 MG PO (10:08)
[2017-04-12] MEDS ORDERED: COUMADIN 3MG3 MG/TAB PO (10:17)
[2017-04-12 10:24] LABS: CALCIUM 10.1 mg/dL (8.4-10.2); CREATININE, serum 1.73 mg/dL (0.52-1.25); MAGNESIUM 2.4 mg/dL (1.6-2.3); POTASSIUM 3.9 mmol/L (3.4-5.0)
[2017-04-12] MEDS ORDERED: FERROUS SU325 MG/TAB PO (10:25)
== END 2017-04-12 12:46 | disposition home health service (06) | DRG 280 ==
LOC: COL.ER 22:25 → MEDICAL 23:34
PROVIDERS: Family Medicine; Internal Medicine; Nurse Practitioner Family; Physician Assistant
DX: I13.0 Hypertensive heart and chronic kidney disease with heart failure and stage 1 through stage 4 chronic kidney disease, or unspecified chronic kidney disease (principal); I50.33 Acute on chronic diastolic (congestive) heart failure; I21.A1 Myocardial infarction type 2; N18.3 Chronic kidney disease, stage 3 (moderate); Z66 Do not resuscitate; I48.0 Paroxysmal atrial fibrillation; J44.9 Chronic obstructive pulmonary disease, unspecified; J45.909 Unspecified asthma, uncomplicated; Z95.0 Presence of cardiac pacemaker; Z95.2 Presence of prosthetic heart valve; Z79.01 Long term (current) use of anticoagulants; Z87.891 Personal history of nicotine dependence; I27.22 Pulmonary hypertension due to left heart disease; I07.1 Rheumatic tricuspid insufficiency; D63.1 Anemia in chronic kidney disease
CPT/HCPCS: 99222-AI; 99232-AI; 99233-AI; 99239; J1650; J2916

== ENCOUNTER 2017-05-21 08:11 | Inpatient (IN) | payer MEDICARE ==
[~2017-05-21] VITALS: Ht 165.1 cm; Wt 77.5 kg
[~2017-05-21 08:11] MED LIST changes: +BUMEX2 MG PO; +CEPHALEXIN500 M1 PO; +FERROUS SU325 MG/TAB PO; +THEO-24400 MG PO; -THEO-DUR 1100 MG/TAB PO; +TOPROL XL 50MG50 MG PO
[2017-05-21 09:03] LABS: BASO % 0.4 % (0.0-2.0); EOS # 0.2 (0.0-0.7); EOS % 3.3 % (0-4.0); GRAN # 5.4 (1.4-6.5); GRAN % 77.3 % (42.2-75.2); HEMATOCRIT 29.8 % (37.0-47.0); HEMOGLOBIN 8.6 g/dl (12.5-16.0); LYMPH # 0.7 (1.2-3.4); LYMPH % 10.6 % (20.0-51.0); MEAN CELL VOLUME 98 fl (80.0-100.0); MEAN CORPUSCULAR HEMOGLOBIN 28 pg (27.0-31.0); MEAN CORPUSCULAR HGB CONC 29 g/dl (33.0-37.0); MEAN PLATELET VOLUME 11.7 fl (7.4-10.4); MONO # 0.6 (0.1-0.6); PLATELET COUNT 152 K/mm3 (130-400); RED BLOOD COUNT 3.04 M/mm3 (4.10-5.30); REDCELL DISTRIBUTION WIDTH-CV 19.2 % (11.5-14.5)
[2017-05-21 09:10] LABS: INR 2.1 (0.8-3.0); PROTHROMBIN TIME 24.2 SECONDS (9.7-12.8)
[2017-05-21 09:20] LABS: ALBUMIN 3.8 gm/dL (3.5-5.0); BILIRUBIN,TOTAL 0.4 mg/dL (0.0-1.0); CALCIUM 9.2 mg/dL (8.4-10.2); CREATININE, serum 1.91 mg/dL (0.52-1.25); POTASSIUM 4.5 mmol/L (3.4-5.0)
[2017-05-21 09:25] LABS: INFLUENZA A NEGATIVE; INFLUENZA B NEGATIVE
[2017-05-21 09:33] LABS: TROPONIN-I 0.102 ng/mL (0.000-0.034)
[2017-05-21 13:11] VITALS: BP 121/63; PULSE 83; TEMP 98.2
[2017-05-21 18:57] VITALS: BP 147/61; PULSE 72; TEMP 98.1
[2017-05-21 23:48] VITALS: BP 133/68; PULSE 75; TEMP 97.6
[2017-05-21 23:50] VITALS: BP 127/56; PULSE 75; TEMP 97.6
[2017-05-22] VITALS (10 sets, daily range): BP systolic 108–154; BP diastolic 46–71; PULSE 52–75; TEMP 97.9–98.6
[2017-05-22 06:29] LABS: BASO % 0.6 % (0.0-2.0); EOS # 0.3 (0.0-0.7); EOS % 3.8 % (0-4.0); GRAN # 5.3 (1.4-6.5); LYMPH # 0.9 (1.2-3.4); LYMPH % 12.2 % (20.0-51.0); MEAN CELL VOLUME 98 fl (80.0-100.0); MEAN CORPUSCULAR HGB CONC 28 g/dl (33.0-37.0); MEAN PLATELET VOLUME 11.3 fl (7.4-10.4); MONO # 0.5 (0.1-0.6); MONO % 7.1 % (1.7-9.3); PLATELET COUNT 141 K/mm3 (130-400); RED BLOOD COUNT 3.01 M/mm3 (4.10-5.30); REDCELL DISTRIBUTION WIDTH-CV 19.2 % (11.5-14.5)
[2017-05-22 06:32] LABS: HEMATOCRIT 29.4 % (37.0-47.0); HEMOGLOBIN 8.3 g/dl (12.5-16.0); MEAN CORPUSCULAR HEMOGLOBIN 28 pg (27.0-31.0)
[2017-05-22 06:37] LABS: INR 1.7 (0.8-3.0); PROTHROMBIN TIME 19.9 SECONDS (9.7-12.8)
[2017-05-22 06:41] LABS: ALBUMIN 3.7 gm/dL (3.5-5.0); BILIRUBIN,TOTAL 0.4 mg/dL (0.0-1.0); CALCIUM 9.4 mg/dL (8.4-10.2); CREATININE, serum 1.88 mg/dL (0.52-1.25); POTASSIUM 4.3 mmol/L (3.4-5.0); TOTAL PROTEIN 6.6 gm/dL (6.4-8.2)
[2017-05-22 07:11] LABS: TROPONIN-I 0.072 ng/mL (0.000-0.034)
[2017-05-22 12:28] LABS: IRON,SERUM 85 ug/dL (35-150)
[2017-05-22 12:32] LABS: RETIC # 0.06 M/mm3 (0.02-0.16); RETIC % 1.9 % (0.5-3.52)
[2017-05-22 12:37] LABS: TOTAL IRON BINDING CAPACITY 340 ug/dL (265-497)
[2017-05-22 13:14] LABS: FERRITIN 32 ng/mL (11-264)
[2017-05-23] VITALS (11 sets, daily range): BP systolic 116–147; BP diastolic 52–84; PULSE 71–79; TEMP 97–98.8
[2017-05-23 07:15] LABS: BASO % 0.5 % (0.0-2.0); EOS # 0.2 (0.0-0.7); EOS % 2.4 % (0-4.0); GRAN # 5.7 (1.4-6.5); GRAN % 74.6 % (42.2-75.2); HEMATOCRIT 38.4 % (37.0-47.0); INR 1.5 (0.8-3.0); LYMPH # 0.9 (1.2-3.4); LYMPH % 12.3 % (20.0-51.0); MEAN CELL VOLUME 99 fl (80.0-100.0); MEAN CORPUSCULAR HEMOGLOBIN 29 pg (27.0-31.0); MEAN CORPUSCULAR HGB CONC 29 g/dl (33.0-37.0); MEAN PLATELET VOLUME 11.7 fl (7.4-10.4); MONO # 0.7 (0.1-0.6); MONO % 9.8 % (1.7-9.3); PLATELET COUNT 156 K/mm3 (130-400); PROTHROMBIN TIME 17.3 SECONDS (9.7-12.8); REDCELL DISTRIBUTION WIDTH-CV 18.5 % (11.5-14.5)
[2017-05-23 07:23] LABS: CALCIUM 10.1 mg/dL (8.4-10.2); CREATININE, serum 1.83 mg/dL (0.52-1.25); POTASSIUM 4.3 mmol/L (3.4-5.0)
[2017-05-23 07:39] LABS: HEMOGLOBIN 11.3 g/dl (12.5-16.0)
[2017-05-24 02:50] VITALS: BP 133/72; PULSE 70; TEMP 98.1
[2017-05-24 05:23] VITALS: BP 122/72; PULSE 73; TEMP 98
[2017-05-24 07:01] LABS: BASO % 0.6 % (0.0-2.0); EOS # 0.2 (0.0-0.7); EOS % 2.1 % (0-4.0); GRAN # 5.2 (1.4-6.5); GRAN % 72.6 % (42.2-75.2); LYMPH # 1.1 (1.2-3.4); LYMPH % 15.9 % (20.0-51.0); MEAN CELL VOLUME 99 fl (80.0-100.0); MEAN CORPUSCULAR HGB CONC 29 g/dl (33.0-37.0); MONO # 0.6 (0.1-0.6); MONO % 8.5 % (1.7-9.3); PLATELET COUNT 140 K/mm3 (130-400); RED BLOOD COUNT 3.69 M/mm3 (4.10-5.30); REDCELL DISTRIBUTION WIDTH-CV 17.9 % (11.5-14.5)
[2017-05-24 07:05] LABS: INR 1.7 (0.8-3.0); PROTHROMBIN TIME 19.3 SECONDS (9.7-12.8)
[2017-05-24 07:06] LABS: HEMATOCRIT 36.6 % (37.0-47.0); HEMOGLOBIN 10.7 g/dl (12.5-16.0); MEAN CORPUSCULAR HEMOGLOBIN 29 pg (27.0-31.0)
[2017-05-24 07:33] LABS: CALCIUM 9.8 mg/dL (8.4-10.2); CREATININE, serum 2.04 mg/dL (0.52-1.25); POTASSIUM 4.6 mmol/L (3.4-5.0)
[2017-05-24 09:42] VITALS: BP 118/48; PULSE 68; TEMP 98.3
[2017-05-24 13:22] VITALS: BP 117/65; PULSE 74; TEMP 98.9
[2017-05-24] MEDS ORDERED: TOPROL XL 50MG50 MG PO (15:22)
[2017-05-24] MEDS ORDERED: COZAAR 25MG25 MG/TAB PO (15:22)
[2017-05-24 17:48] VITALS: BP 130/63; PULSE 70; TEMP 98
[2017-05-24 22:31] VITALS: BP 142/69; PULSE 75; TEMP 98.2
[2017-05-25 02:01] VITALS: BP 115/60; PULSE 70; TEMP 98.2
[2017-05-25 06:01] LABS: BASO % 0.5 % (0.0-2.0); EOS # 0.2 (0.0-0.7); EOS % 3.2 % (0-4.0); GRAN # 5.2 (1.4-6.5); GRAN % 69.5 % (42.2-75.2); HEMATOCRIT 37.9 % (37.0-47.0); LYMPH # 1.4 (1.2-3.4); LYMPH % 18.4 % (20.0-51.0); MEAN CELL VOLUME 98 fl (80.0-100.0); MEAN CORPUSCULAR HEMOGLOBIN 29 pg (27.0-31.0); MEAN CORPUSCULAR HGB CONC 30 g/dl (33.0-37.0); MEAN PLATELET VOLUME 10.5 fl (7.4-10.4); MONO # 0.6 (0.1-0.6); PLATELET COUNT 147 K/mm3 (130-400); RED BLOOD COUNT 3.87 M/mm3 (4.10-5.30); REDCELL DISTRIBUTION WIDTH-CV 17.2 % (11.5-14.5)
[2017-05-25 06:02] LABS: HEMOGLOBIN 11.2 g/dl (12.5-16.0)
[2017-05-25 06:08] LABS: INR 1.7 (0.8-3.0); PROTHROMBIN TIME 19.8 SECONDS (9.7-12.8)
[2017-05-25 06:12] VITALS: BP 130/76; PULSE 79; TEMP 97.5
[2017-05-25 06:13] LABS: CALCIUM 10.2 mg/dL (8.4-10.2); CREATININE, serum 1.83 mg/dL (0.52-1.25); MAGNESIUM 2.3 mg/dL (1.6-2.3); POTASSIUM 4.3 mmol/L (3.4-5.0)
[2017-05-25 09:45] VITALS: BP 128/65; PULSE 54; TEMP 98
[2017-05-25 13:51] VITALS: BP 113/56; PULSE 50; TEMP 98.6
[2017-05-25 18:10] VITALS: BP 154/64; PULSE 74; TEMP 98.7
[2017-05-25 22:00] VITALS: BP 134/55; PULSE 71; TEMP 98.7
[2017-05-26 01:32] VITALS: BP 152/73; PULSE 72; TEMP 97.6
[2017-05-26 05:51] VITALS: BP 151/73; PULSE 70; TEMP 98.9
[2017-05-26 07:45] LABS: INR 1.4 (0.8-3.0); PROTHROMBIN TIME 15.7 SECONDS (9.7-12.8)
[2017-05-26 07:47] LABS: BASO % 0.6 % (0.0-2.0); EOS # 0.3 (0.0-0.7); EOS % 3.7 % (0-4.0); GRAN # 4.8 (1.4-6.5); GRAN % 71.2 % (42.2-75.2); LYMPH # 1.1 (1.2-3.4); MEAN CELL VOLUME 98 fl (80.0-100.0); MEAN CORPUSCULAR HGB CONC 30 g/dl (33.0-37.0); MEAN PLATELET VOLUME 11.3 fl (7.4-10.4); MONO # 0.5 (0.1-0.6); MONO % 7.9 % (1.7-9.3); PLATELET COUNT 152 K/mm3 (130-400); RED BLOOD COUNT 3.75 M/mm3 (4.10-5.30); REDCELL DISTRIBUTION WIDTH-CV 17.5 % (11.5-14.5)
[2017-05-26 07:54] LABS: HEMATOCRIT 36.9 % (37.0-47.0); HEMOGLOBIN 10.9 g/dl (12.5-16.0); MEAN CORPUSCULAR HEMOGLOBIN 29 pg (27.0-31.0)
[2017-05-26 08:01] LABS: CREATININE, serum 1.59 mg/dL (0.52-1.25)
[2017-05-26 09:46] VITALS: BP 146/68; PULSE 69; TEMP 98.4
[2017-05-26 14:16] VITALS: BP 148/70; PULSE 71; TEMP 98.2
== END 2017-05-26 15:05 | disposition home health service (06) | DRG 280 ==
LOC: COL.ER 08:11 → JCC 10:18
PROVIDERS: Emergency Medicine; Internal Medicine; Internal Medicine Nephrology; Physician Assistant
DX: I13.0 Hypertensive heart and chronic kidney disease with heart failure and stage 1 through stage 4 chronic kidney disease, or unspecified chronic kidney disease (principal); I50.33 Acute on chronic diastolic (congestive) heart failure; I21.A1 Myocardial infarction type 2; E87.3 Alkalosis; I27.0 Primary pulmonary hypertension; N17.9 Acute kidney failure, unspecified; N18.3 Chronic kidney disease, stage 3 (moderate); I48.0 Paroxysmal atrial fibrillation; J44.9 Chronic obstructive pulmonary disease, unspecified; Z95.2 Presence of prosthetic heart valve; Z79.01 Long term (current) use of anticoagulants; Z95.0 Presence of cardiac pacemaker; D64.9 Anemia, unspecified; Z87.891 Personal history of nicotine dependence; Z86.718 Personal history of other venous thrombosis and embolism; I07.1 Rheumatic tricuspid insufficiency
CPT/HCPCS: 99223-AI; 99231-AI; 99232-AI; 99239; A9502; A9541; J0881; J1940; J2405; J2785; J2916; J7050; P9016

== ENCOUNTER 2017-05-29 12:25 | Emergency (ER) | payer MEDICARE ==
[~2017-05-29] VITALS: Ht 165.1 cm; Wt 74.6 kg
[~2017-05-29 12:25] MED LIST changes: +COZAAR 25MG25 MG/TAB PO
[2017-05-29 12:31] VITALS: TEMP 98.5
[2017-05-29 14:25] LABS: BASO % 0.4 % (0.0-2.0); EOS # 0.2 (0.0-0.7); EOS % 2.3 % (0-4.0); GRAN # 5.9 (1.4-6.5); GRAN % 79.2 % (42.2-75.2); HEMATOCRIT 39.2 % (37.0-47.0); LYMPH # 0.9 (1.2-3.4); LYMPH % 11.8 % (20.0-51.0); MEAN CELL VOLUME 101 fl (80.0-100.0); MEAN CORPUSCULAR HEMOGLOBIN 29 pg (27.0-31.0); MEAN CORPUSCULAR HGB CONC 29 g/dl (33.0-37.0); MEAN PLATELET VOLUME 10.2 fl (7.4-10.4); MONO # 0.5 (0.1-0.6); PLATELET COUNT 171 K/mm3 (130-400); RED BLOOD COUNT 3.89 M/mm3 (4.10-5.30); REDCELL DISTRIBUTION WIDTH-CV 18.3 % (11.5-14.5)
[2017-05-29 14:28] LABS: HEMOGLOBIN 11.3 g/dl (12.5-16.0)
[2017-05-29 14:31] LABS: BILIRUBIN,TOTAL 0.5 mg/dL (0.0-1.0); CALCIUM 9.8 mg/dL (8.4-10.2); CREATININE, serum 1.46 mg/dL (0.52-1.25); POTASSIUM 4.2 mmol/L (3.4-5.0)
[2017-05-29 14:32] LABS: INR 1.4 (0.8-3.0); PROTHROMBIN TIME 16.2 SECONDS (9.7-12.8)
[2017-05-29 14:56] LABS: TROPONIN-I 0.042 ng/mL (0.000-0.034)
[2017-05-29 16:21] VITALS: BP 184/98; PULSE 74
== END 2017-05-29 16:23 | disposition home or self-care (01) ==
LOC: COL.ER 12:25
PROVIDERS: Emergency Medicine
DX: M79.89 Other specified soft tissue disorders (principal); R63.5 Abnormal weight gain; I50.9 Heart failure, unspecified; I48.91 Unspecified atrial fibrillation; N18.9 Chronic kidney disease, unspecified; K21.9 Gastro-esophageal reflux disease without esophagitis; D64.9 Anemia, unspecified; Z95.0 Presence of cardiac pacemaker; Z95.1 Presence of aortocoronary bypass graft; Z95.4 Presence of other heart-valve replacement; Z90.710 Acquired absence of both cervix and uterus; Z79.01 Long term (current) use of anticoagulants
CPT/HCPCS: J1940

== ENCOUNTER → 2017-08-15 | Outpatient (CLI) | payer MEDICARE | LOC: COL.RAD 10:36 | DX: Z01.812 Encounter for preprocedural laboratory examination (principal); R10.32 Left lower quadrant pain; K57.30 Diverticulosis of large intestine without perforation or abscess without bleeding ==

== ENCOUNTER → 2017-09-06 | Outpatient (CLI) | payer MEDICARE | LOC: COL.RAD 10:56 | DX: G51.0 Bell's palsy (principal); Z87.448 Personal history of other diseases of urinary system ==

== ENCOUNTER 2017-09-17 10:17 | Observation (INO) | payer MEDICARE ==
[~2017-09-17] VITALS: Ht 165.1 cm; Wt 70.3 kg
[2017-09-17 10:48] LABS: BASO % 0.3 % (0.0-2.0); EOS # 0.2 (0.0-0.7); EOS % 2.7 % (0-4.0); GRAN # 6.6 (1.4-6.5); GRAN % 73.1 % (42.2-75.2); LYMPH # 1.5 (1.2-3.4); LYMPH % 16.9 % (20.0-51.0); MEAN CELL VOLUME 105 fl (80.0-100.0); MEAN CORPUSCULAR HGB CONC 30 g/dl (33.0-37.0); MEAN PLATELET VOLUME 10.7 fl (7.4-10.4); MONO # 0.6 (0.1-0.6); MONO % 6.8 % (1.7-9.3); PLATELET COUNT 168 K/mm3 (130-400); RED BLOOD COUNT 3.36 M/mm3 (4.10-5.30); REDCELL DISTRIBUTION WIDTH-CV 15.2 % (11.5-14.5)
[2017-09-17] MEDS ORDERED: COZAAR 25MG25 MG/TAB PO (10:48)
[2017-09-17] MEDS ORDERED: TOPROL XL 50MG50 MG PO (10:48)
[2017-09-17 10:49] LABS: HEMATOCRIT 35.1 % (37.0-47.0); HEMOGLOBIN 10.5 g/dl (12.5-16.0); MEAN CORPUSCULAR HEMOGLOBIN 31 pg (27.0-31.0)
[2017-09-17 11:16] LABS: ALBUMIN 4.1 gm/dL (3.5-5.0); BILIRUBIN,TOTAL 0.4 mg/dL (0.0-1.0); CREATININE, serum 2.18 mg/dL (0.52-1.25); POTASSIUM 4.5 mmol/L (3.4-5.0); TOTAL PROTEIN 8.3 gm/dL (6.4-8.2)
[2017-09-17 11:21] LABS: TROPONIN-I 0.036 ng/mL (0.000-0.034)
[2017-09-17 12:13] LABS: INR 2.4 (0.8-3.0); PROTHROMBIN TIME 28.3 SECONDS (9.7-12.8)
[2017-09-17 12:16] LABS: LIPASE 144 U/L (23-300)
[2017-09-17 13:13] VITALS: BP 111/59; PULSE 65; TEMP 98.2
[2017-09-17 15:45] LABS: COLLECTION METHOD CLEAN CATCH
[2017-09-17] MEDS ORDERED: COUMADIN 2MG2 MG/TAB PO (15:48)
[2017-09-17 15:55] VITALS: BP 120/57; PULSE 79; TEMP 98.2
[2017-09-17 16:31] LABS: MUCOUS Present /lpf; PH 5 (5-8); SQUAMOUS EPITHELIAL 0-2 /hpf; URINE APPEARANCE Clear; URINE BACTERIA None Seen /hpf; URINE BILIRUBIN Negative (NEGATIVE); URINE BLOOD Negative (NEGATIVE); URINE COLOR Yellow; URINE GLUCOSE Negative (NEGATIVE); URINE KETONE Negative (NEGATIVE); URINE LEUKOCYTE ESTERASE Negative (NEGATIVE); URINE NITRATE Negative (NEGATIVE); URINE PROTEIN(semi-quant) Negative (NEGATIVE); URINE RBC 0-2 /hpf; URINE UROBILINOGEN Negative (NEGATIVE)
[2017-09-17 20:00] VITALS: BP 111/51; PULSE 72; TEMP 98
[2017-09-18] VITALS: BP 104/57; PULSE 73; TEMP 97.8
[2017-09-18 04:05] VITALS: BP 107/53; PULSE 73; TEMP 98.4
[2017-09-18 06:45] LABS: BASO % 0.5 % (0.0-2.0); EOS # 0.3 (0.0-0.7); EOS % 3.9 % (0-4.0); GRAN # 4.6 (1.4-6.5); GRAN % 71.1 % (42.2-75.2); LYMPH # 1.1 (1.2-3.4); LYMPH % 17.1 % (20.0-51.0); MEAN CELL VOLUME 103 fl (80.0-100.0); MEAN CORPUSCULAR HGB CONC 30 g/dl (33.0-37.0); MEAN PLATELET VOLUME 10.4 fl (7.4-10.4); MONO # 0.5 (0.1-0.6); MONO % 7.1 % (1.7-9.3); PLATELET COUNT 128 K/mm3 (130-400); RED BLOOD COUNT 2.74 M/mm3 (4.10-5.30); REDCELL DISTRIBUTION WIDTH-CV 14.9 % (11.5-14.5)
[2017-09-18 06:47] LABS: HEMATOCRIT 28.3 % (37.0-47.0); HEMOGLOBIN 8.5 g/dl (12.5-16.0); MEAN CORPUSCULAR HEMOGLOBIN 31 pg (27.0-31.0)
[2017-09-18 06:50] LABS: INR 2.6 (0.8-3.0); PROTHROMBIN TIME 30.8 SECONDS (9.7-12.8)
[2017-09-18 06:59] LABS: ALBUMIN 3.1 gm/dL (3.5-5.0); BILIRUBIN,TOTAL 0.3 mg/dL (0.0-1.0); CREATININE, serum 2.16 mg/dL (0.52-1.25); MAGNESIUM 2.3 mg/dL (1.6-2.3); POTASSIUM 4.3 mmol/L (3.4-5.0); TOTAL PROTEIN 6.1 gm/dL (6.4-8.2)
[2017-09-18 07:24] LABS: TROPONIN-I 0.042 ng/mL (0.000-0.034)
[2017-09-18 08:04] VITALS: BP 111/42; PULSE 76; TEMP 98
[2017-09-18 12:25] VITALS: BP 108/54; PULSE 70; TEMP 98.3
[2017-09-18 15:52] VITALS: BP 123/76; PULSE 80; TEMP 97
[2017-09-18 20:52] VITALS: BP 131/59; PULSE 71; TEMP 98.3
[2017-09-19 00:04] VITALS: BP 115/54; PULSE 75; TEMP 98.4
[2017-09-19 03:40] VITALS: BP 103/49; PULSE 71; TEMP 98.2
[2017-09-19 06:34] LABS: BASO % 0.3 % (0.0-2.0); EOS # 0.2 (0.0-0.7); EOS % 2.6 % (0-4.0); GRAN # 5.6 (1.4-6.5); GRAN % 73.1 % (42.2-75.2); LYMPH # 1.4 (1.2-3.4); LYMPH % 17.8 % (20.0-51.0); MEAN CELL VOLUME 103 fl (80.0-100.0); MEAN CORPUSCULAR HGB CONC 31 g/dl (33.0-37.0); MEAN PLATELET VOLUME 10.5 fl (7.4-10.4); MONO # 0.5 (0.1-0.6); MONO % 5.9 % (1.7-9.3); PLATELET COUNT 134 K/mm3 (130-400); RED BLOOD COUNT 2.71 M/mm3 (4.10-5.30); REDCELL DISTRIBUTION WIDTH-CV 15.2 % (11.5-14.5)
[2017-09-19 06:35] LABS: HEMATOCRIT 27.9 % (37.0-47.0); HEMOGLOBIN 8.6 g/dl (12.5-16.0); MEAN CORPUSCULAR HEMOGLOBIN 32 pg (27.0-31.0)
[2017-09-19 06:38] LABS: INR 2.4 (0.8-3.0); PROTHROMBIN TIME 28.6 SECONDS (9.7-12.8)
[2017-09-19 06:56] LABS: CREATININE, serum 1.73 mg/dL (0.52-1.25)
[2017-09-19 08:00] VITALS: BP 126/60; PULSE 75; TEMP 97.5
[2017-09-19 11:46] VITALS: BP 118/46; PULSE 71; TEMP 98.4
== END 2017-09-19 14:00 | disposition home or self-care (01) ==
LOC: COL.ER 10:17 → SURG 12:08
PROVIDERS: Emergency Medicine; Internal Medicine
DX: R10.13 Epigastric pain (principal); R10.30 Lower abdominal pain, unspecified; I25.10 Atherosclerotic heart disease of native coronary artery without angina pectoris; I13.0 Hypertensive heart and chronic kidney disease with heart failure and stage 1 through stage 4 chronic kidney disease, or unspecified chronic kidney disease; N18.3 Chronic kidney disease, stage 3 (moderate); I50.30 Unspecified diastolic (congestive) heart failure; J44.9 Chronic obstructive pulmonary disease, unspecified; I48.91 Unspecified atrial fibrillation; I27.20 Pulmonary hypertension, unspecified; K59.00 Constipation, unspecified; Z79.01 Long term (current) use of anticoagulants; Z95.2 Presence of prosthetic heart valve; Z90.710 Acquired absence of both cervix and uterus; Z95.0 Presence of cardiac pacemaker; Z87.891 Personal history of nicotine dependence; Z88.2 Allergy status to sulfonamides; Z88.6 Allergy status to analgesic agent; Z88.1 Allergy status to other antibiotic agents; Z88.3 Allergy status to other anti-infective agents; Z88.8 Allergy status to other drugs, medicaments and biological substances; Z86.718 Personal history of other venous thrombosis and embolism; Z81.8 Family history of other mental and behavioral disorders; Z80.6 Family history of leukemia
CPT/HCPCS: 99232-AI; G0378; G8978-GP; G8979-GP; G8987-GO; G8988-GO; J7030

== ENCOUNTER 2017-11-08 13:16 | Emergency (ER) | payer MEDICARE ==
[~2017-11-08] VITALS: Ht 165.1 cm; Wt 72.7 kg
[2017-11-08 13:30] VITALS: TEMP 98.3
[2017-11-08 13:41] LABS: BASO % 0.4 % (0.0-2.0); EOS # 0.1 (0.0-0.7); EOS % 1.7 % (0-4.0); GRAN # 5.6 (1.4-6.5); GRAN % 75.8 % (42.2-75.2); LYMPH # 1.2 (1.2-3.4); LYMPH % 15.5 % (20.0-51.0); MEAN CELL VOLUME 104 fl (80.0-100.0); MEAN CORPUSCULAR HGB CONC 30 g/dl (33.0-37.0); MEAN PLATELET VOLUME 10.5 fl (7.4-10.4); MONO # 0.5 (0.1-0.6); MONO % 6.2 % (1.7-9.3); PLATELET COUNT 142 K/mm3 (130-400); RED BLOOD COUNT 3.02 M/mm3 (4.10-5.30); REDCELL DISTRIBUTION WIDTH-CV 13.5 % (11.5-14.5)
[2017-11-08 13:51] LABS: ALBUMIN 3.7 gm/dL (3.5-5.0); BILIRUBIN,TOTAL 0.2 mg/dL (0.0-1.0); CALCIUM 9.9 mg/dL (8.4-10.2); CREATININE, serum 1.66 mg/dL (0.52-1.25); TOTAL PROTEIN 7.4 gm/dL (6.4-8.2)
[2017-11-08 13:53] LABS: HEMATOCRIT 31.4 % (37.0-47.0); HEMOGLOBIN 9.4 g/dl (12.5-16.0); MEAN CORPUSCULAR HEMOGLOBIN 31 pg (27.0-31.0)
[2017-11-08 14:05] LABS: TROPONIN-I 0.051 ng/mL (0.000-0.034)
[2017-11-08 14:12] LABS: PROTHROMBIN TIME 22.7 SECONDS (9.7-12.8)
[2017-11-08] MEDS ORDERED: DOXYCYCLINE 10100 MG PO (14:23)
[2017-11-08] MEDS ORDERED: ZOFRAN ODT4 MG PO (17:15)
[2017-11-08 18:02] VITALS: BP 135/96; PULSE 71
== END 2017-11-08 18:09 | disposition home or self-care (01) ==
LOC: COL.ER 13:16
PROVIDERS: Family Medicine
DX: I50.9 Heart failure, unspecified (principal); N18.9 Chronic kidney disease, unspecified; I48.91 Unspecified atrial fibrillation; Z95.0 Presence of cardiac pacemaker; Z79.01 Long term (current) use of anticoagulants
CPT/HCPCS: J1940

== ENCOUNTER 2017-11-25 11:45 | Observation (INO) | payer MEDICARE ==
[~2017-11-25] VITALS: Ht 165.1 cm; Wt 72.1 kg
[~2017-11-25 11:45] MED LIST changes: +ZOFRAN ODT4 MG PO
[2017-11-25] MEDS ORDERED: COUMADIN4 MG PO (12:26)
[2017-11-25] MEDS ORDERED: BUMEX2 MG PO (12:28)
[2017-11-25 12:33] LABS: BASO % 0.4 % (0.0-2.0); EOS # 0.2 (0.0-0.7); EOS % 2.6 % (0-4.0); GRAN # 5.7 (1.4-6.5); GRAN % 71.6 % (42.2-75.2); HEMOGLOBIN 10.1 g/dl (12.5-16.0); LYMPH # 1.3 (1.2-3.4); LYMPH % 16.7 % (20.0-51.0); MEAN CELL VOLUME 102 fl (80.0-100.0); MEAN CORPUSCULAR HEMOGLOBIN 31 pg (27.0-31.0); MEAN CORPUSCULAR HGB CONC 31 g/dl (33.0-37.0); MEAN PLATELET VOLUME 10.8 fl (7.4-10.4); MONO # 0.7 (0.1-0.6); MONO % 8.4 % (1.7-9.3); PLATELET COUNT 147 K/mm3 (130-400); RED BLOOD COUNT 3.24 M/mm3 (4.10-5.30); REDCELL DISTRIBUTION WIDTH-CV 13.5 % (11.5-14.5)
[2017-11-25 12:37] LABS: HEMATOCRIT 32.9 % (37.0-47.0)
[2017-11-25 12:42] LABS: ALBUMIN 3.6 gm/dL (3.5-5.0); BILIRUBIN,TOTAL 0.3 mg/dL (0.0-1.0); CALCIUM 9.3 mg/dL (8.4-10.2); CREATININE, serum 1.96 mg/dL (0.52-1.25); MAGNESIUM 2.4 mg/dL (1.6-2.3); PHOSPHOROUS 3.4 mg/dL (2.5-4.5); POTASSIUM 3.6 mmol/L (3.4-5.0); TOTAL PROTEIN 6.7 gm/dL (6.4-8.2)
[2017-11-25 12:55] LABS: TROPONIN-I 0.054 ng/mL (0.000-0.034)
[2017-11-25 12:57] LABS: INR 1.4 (0.8-3.0); PROTHROMBIN TIME 15.7 SECONDS (9.7-12.8)
[2017-11-25 12:59] LABS: PARTIAL THROMBOPLASTIN TIME 33.3 SECONDS (26.0-37.0)
[2017-11-25 13:09] LABS: COLLECTION METHOD CLEAN CATCH
[2017-11-25 13:18] LABS: PH 7 (5-8); SQUAMOUS EPITHELIAL 0-2 /hpf; URINE APPEARANCE Clear; URINE BACTERIA None Seen /hpf; URINE BILIRUBIN Negative (NEGATIVE); URINE BLOOD Negative (NEGATIVE); URINE COLOR Yellow; URINE GLUCOSE Negative (NEGATIVE); URINE KETONE Negative (NEGATIVE); URINE LEUKOCYTE ESTERASE Trace (NEGATIVE); URINE NITRATE Negative (NEGATIVE); URINE PROTEIN(semi-quant) Negative (NEGATIVE); URINE RBC 0-2 /hpf; URINE UROBILINOGEN Negative (NEGATIVE)
[2017-11-25 13:20] LABS: ARTERIAL BLD GAS O2 SATURATION 96.4 % (92-100); ARTERIAL BLOOD GAS BASE EXCESS 17.2 (-2-2); ARTERIAL BLOOD GAS HCO3 45.7 meq/L (22-26); ARTERIAL BLOOD GAS PCO2 77.7 mmHg (35-45); ARTERIAL BLOOD GAS PO2 91.4 mmHg (80-100); ARTERIAL BLOOD GAS pH 7.39 (7.35-7.45)
[2017-11-25 16:57] VITALS: BP 112/57; PULSE 80; TEMP 98.7
[2017-11-25 19:48] VITALS: BP 121/107; PULSE 60; TEMP 98.3
[2017-11-25 22:46] VITALS: BP 124/50
[2017-11-25 23:51] VITALS: BP 98/55; PULSE 62; TEMP 98.2
[2017-11-26] VITALS (7 sets, daily range): BP systolic 97–116; BP diastolic 37–50; PULSE 63–85; TEMP 97.6–98.1
[2017-11-26 05:38] LABS: ARTERIAL BLD GAS O2 SATURATION 96.1 % (92-100); ARTERIAL BLD GAS TCO2 CT 45.6; ARTERIAL BLOOD GAS HCO3 43.4 meq/L (22-26); ARTERIAL BLOOD GAS PO2 89.8 mmHg (80-100)
[2017-11-26 06:58] LABS: MEAN CELL VOLUME 103 fl (80.0-100.0); MEAN CORPUSCULAR HGB CONC 30 g/dl (33.0-37.0); MEAN PLATELET VOLUME 11.8 fl (7.4-10.4); PLATELET COUNT 125 K/mm3 (130-400); RED BLOOD COUNT 2.95 M/mm3 (4.10-5.30); REDCELL DISTRIBUTION WIDTH-CV 13.7 % (11.5-14.5)
[2017-11-26 07:08] LABS: HEMATOCRIT 30.5 % (37.0-47.0); MEAN CORPUSCULAR HEMOGLOBIN 31 pg (27.0-31.0)
[2017-11-26 07:09] LABS: INR 1.4 (0.8-3.0); PROTHROMBIN TIME 16.3 SECONDS (9.7-12.8)
[2017-11-26 07:16] LABS: CALCIUM 8.9 mg/dL (8.4-10.2); CREATININE, serum 2.17 mg/dL (0.52-1.25); MAGNESIUM 2.2 mg/dL (1.6-2.3); POTASSIUM 3.3 mmol/L (3.4-5.0)
[2017-11-26 07:27] LABS: TROPONIN-I 0.088 ng/mL (0.000-0.034)
[2017-11-26 07:46] LABS: BAND 3 % (0-10); EOSINOPHIL 2 % (0-4); LYMPHOCYTE 14 % (20.0-51.0); METAMYELOCYTE 1 % (0-0); NEUTROPHILS 77 % (42.0-75.2); PLATELET ESTIMATE DECREASED (NORMAL)
[2017-11-26 07:47] LABS: HYPOCHROMIA 3+
[2017-11-26 07:48] LABS: STOMATOCYTE 1+
== END 2017-11-26 12:45 | disposition home health service (06) ==
LOC: COL.ER 11:45 → EDBEDREQ 15:27 → MEDICAL 15:32
PROVIDERS: Emergency Medicine; Internal Medicine
DX: I13.0 Hypertensive heart and chronic kidney disease with heart failure and stage 1 through stage 4 chronic kidney disease, or unspecified chronic kidney disease (principal); I50.30 Unspecified diastolic (congestive) heart failure; N18.9 Chronic kidney disease, unspecified; J44.9 Chronic obstructive pulmonary disease, unspecified; Z66 Do not resuscitate; R79.89 Other specified abnormal findings of blood chemistry; D53.9 Nutritional anemia, unspecified; I48.91 Unspecified atrial fibrillation; Z79.01 Long term (current) use of anticoagulants; K21.9 Gastro-esophageal reflux disease without esophagitis; E03.9 Hypothyroidism, unspecified; Z95.2 Presence of prosthetic heart valve; Z95.0 Presence of cardiac pacemaker; Z79.899 Other long term (current) drug therapy; Z87.891 Personal history of nicotine dependence
CPT/HCPCS: G8978-GP; G8979-GP; G8987-GO; G8988-GO; J1644; J1940; J2405

== ENCOUNTER 2017-12-13 12:09 | Emergency (ER) | payer MEDICARE ==
[~2017-12-13] VITALS: Ht 165.1 cm; Wt 72.7 kg
[2017-12-13 12:15] VITALS: TEMP 98.3
[2017-12-13] MEDS ORDERED: K-TAB10 (12:39)
[2017-12-13 12:44] LABS: BASO % 0.4 % (0.0-2.0); EOS # 0.1 (0.0-0.7); EOS % 1.3 % (0-4.0); GRAN # 8.8 (1.4-6.5); GRAN % 78.9 % (42.2-75.2); LYMPH # 1.2 (1.2-3.4); LYMPH % 10.5 % (20.0-51.0); MEAN CELL VOLUME 103 fl (80.0-100.0); MEAN CORPUSCULAR HGB CONC 30 g/dl (33.0-37.0); MEAN PLATELET VOLUME 10.8 fl (7.4-10.4); MONO # 0.9 (0.1-0.6); MONO % 8.4 % (1.7-9.3); PLATELET COUNT 185 K/mm3 (130-400); REDCELL DISTRIBUTION WIDTH-CV 14.1 % (11.5-14.5)
[2017-12-13 12:47] LABS: HEMATOCRIT 31.8 % (37.0-47.0); HEMOGLOBIN 9.5 g/dl (12.5-16.0); MEAN CORPUSCULAR HEMOGLOBIN 31 pg (27.0-31.0)
[2017-12-13 13:02] LABS: BILIRUBIN,TOTAL 0.3 mg/dL (0.0-1.0); CALCIUM 9.7 mg/dL (8.4-10.2); CREATININE, serum 1.76 mg/dL (0.52-1.25); POTASSIUM 4.2 mmol/L (3.4-5.0); TOTAL PROTEIN 7.2 gm/dL (6.4-8.2)
[2017-12-13 13:09] LABS: INR 1.8 (0.8-3.0); PROTHROMBIN TIME 20.6 SECONDS (9.7-12.8)
[2017-12-13 13:10] LABS: TROPONIN-I 0.045 ng/mL (0.000-0.034)
[2017-12-13 16:00] VITALS: BP 121/65; PULSE 70
== END 2017-12-13 16:00 | disposition home or self-care (01) ==
LOC: COL.ER 12:09
PROVIDERS: Family Medicine
DX: I50.9 Heart failure, unspecified (principal); M79.605 Pain in left leg; Z86.718 Personal history of other venous thrombosis and embolism; Z79.01 Long term (current) use of anticoagulants
CPT/HCPCS: J1940

== ENCOUNTER → 2017-12-30 | Outpatient (CLI) | payer MEDICARE ==
[~2017-12-30] MED LIST changes: +K-TAB10
== END ==
LOC: COL.RAD 13:30
DX: I69.354 Hemiplegia and hemiparesis following cerebral infarction affecting left non-dominant side (principal); G31.1 Senile degeneration of brain, not elsewhere classified; I67.82 Cerebral ischemia

== ENCOUNTER 2018-02-02 14:02 | Inpatient (IN) | payer MEDICARE ==
[~2018-02-02] VITALS: Ht 165.1 cm; Wt 76.7 kg
[2018-02-02 14:29] LABS: BASO # 0.1 (0.0-0.2); BASO % 0.5 % (0.0-2.0); EOS # 0.3 (0.0-0.7); EOS % 3.4 % (0-4.0); GRAN # 7.3 (1.4-6.5); GRAN % 77.1 % (42.2-75.2); LYMPH # 1.2 (1.2-3.4); LYMPH % 12.8 % (20.0-51.0); MEAN CELL VOLUME 100 fl (80.0-100.0); MEAN CORPUSCULAR HGB CONC 31 g/dl (33.0-37.0); MEAN PLATELET VOLUME 10.7 fl (7.4-10.4); MONO # 0.6 (0.1-0.6); PLATELET COUNT 198 K/mm3 (130-400); RED BLOOD COUNT 3.06 M/mm3 (4.10-5.30); REDCELL DISTRIBUTION WIDTH-CV 15.5 % (11.5-14.5)
[2018-02-02 14:30] LABS: HEMATOCRIT 30.7 % (37.0-47.0); HEMOGLOBIN 9.4 g/dl (12.5-16.0); MEAN CORPUSCULAR HEMOGLOBIN 31 pg (27.0-31.0)
[2018-02-02 14:34] LABS: INR 2.3 (0.8-3.0); PROTHROMBIN TIME 26.2 SECONDS (9.7-12.8)
[2018-02-02 14:43] LABS: ALBUMIN 3.8 gm/dL (3.5-5.0); BILIRUBIN,TOTAL 0.3 mg/dL (0.0-1.0); CALCIUM 9.7 mg/dL (8.4-10.2); CREATININE, serum 2.98 mg/dL (0.52-1.25); POTASSIUM 4.1 mmol/L (3.4-5.0); TOTAL PROTEIN 7.3 gm/dL (6.4-8.2)
[2018-02-02 15:05] LABS: TROPONIN-I 0.052 ng/mL (0.000-0.034)
[2018-02-02 16:00] VITALS: BP 121/43; PULSE 88; TEMP 97.9
[2018-02-02 16:23] VITALS: BP 121/43; PULSE 88; TEMP 97.9
[2018-02-02 20:00] VITALS: BP 109/49; PULSE 72; TEMP 97.9
[2018-02-02 23:12] VITALS: BP 113/74; PULSE 76; TEMP 98.1
[2018-02-03 04:51] VITALS: BP 106/47; PULSE 73; TEMP 98
[2018-02-03 06:15] LABS: BASO % 0.4 % (0.0-2.0); EOS # 0.4 (0.0-0.7); EOS % 5.4 % (0-4.0); GRAN # 4.9 (1.4-6.5); GRAN % 70.6 % (42.2-75.2); LYMPH # 1.1 (1.2-3.4); MEAN CELL VOLUME 102 fl (80.0-100.0); MEAN CORPUSCULAR HGB CONC 30 g/dl (33.0-37.0); MONO # 0.5 (0.1-0.6); MONO % 7.3 % (1.7-9.3); PLATELET COUNT 177 K/mm3 (130-400); RED BLOOD COUNT 2.74 M/mm3 (4.10-5.30); REDCELL DISTRIBUTION WIDTH-CV 15.5 % (11.5-14.5)
[2018-02-03 06:24] LABS: INR 2.2 (0.8-3.0); PROTHROMBIN TIME 25.1 SECONDS (9.7-12.8)
[2018-02-03 06:33] LABS: HEMATOCRIT 27.9 % (37.0-47.0); HEMOGLOBIN 8.4 g/dl (12.5-16.0); MEAN CORPUSCULAR HEMOGLOBIN 31 pg (27.0-31.0)
[2018-02-03 06:37] LABS: ALBUMIN 3.5 gm/dL (3.5-5.0); CALCIUM 9.1 mg/dL (8.4-10.2); CREATININE, serum 2.76 mg/dL (0.52-1.25); PHOSPHOROUS 5.1 mg/dL (2.5-4.5)
[2018-02-03 08:14] VITALS: BP 134/96; PULSE 44; TEMP 97.6
[2018-02-03 08:35] VITALS: PULSE 80
[2018-02-03 12:06] LABS: COLLECTION METHOD CLEAN CATCH
[2018-02-03 12:26] LABS: MUCOUS Present /lpf; PH 5 (5-8); URINE APPEARANCE Clear; URINE BACTERIA None Seen /hpf; URINE BILIRUBIN Negative (NEGATIVE); URINE BLOOD Negative (NEGATIVE); URINE COLOR Yellow; URINE GLUCOSE Negative (NEGATIVE); URINE KETONE Negative (NEGATIVE); URINE LEUKOCYTE ESTERASE 3+ (NEGATIVE); URINE NITRATE Negative (NEGATIVE); URINE PROTEIN(semi-quant) Negative (NEGATIVE); URINE RBC 0-2 /hpf; URINE UROBILINOGEN Negative (NEGATIVE); URINE WBC 20-50 /hpf
[2018-02-03 12:34] VITALS: BP 110/50; PULSE 80; TEMP 98.6
[2018-02-03 15:46] VITALS: BP 133/63; PULSE 54; TEMP 97.2
[2018-02-03 20:19] VITALS: BP 100/46; PULSE 71; TEMP 98.3
[2018-02-04 00:21] VITALS: BP 110/63; PULSE 75; TEMP 97.7
[2018-02-04 05:16] VITALS: PULSE 74
[2018-02-04 07:35] LABS: BASO % 0.4 % (0.0-2.0); EOS # 0.3 (0.0-0.7); EOS % 3.9 % (0-4.0); GRAN # 6.1 (1.4-6.5); GRAN % 78.3 % (42.2-75.2); LYMPH # 0.8 (1.2-3.4); LYMPH % 10.3 % (20.0-51.0); MEAN CELL VOLUME 99 fl (80.0-100.0); MEAN CORPUSCULAR HGB CONC 30 g/dl (33.0-37.0); MEAN PLATELET VOLUME 10.5 fl (7.4-10.4); MONO # 0.5 (0.1-0.6); MONO % 6.8 % (1.7-9.3); PLATELET COUNT 169 K/mm3 (130-400); RED BLOOD COUNT 2.71 M/mm3 (4.10-5.30); REDCELL DISTRIBUTION WIDTH-CV 15.5 % (11.5-14.5)
[2018-02-04 07:36] LABS: PROTHROMBIN TIME 22.7 SECONDS (9.7-12.8)
[2018-02-04 07:38] LABS: HEMATOCRIT 26.7 % (37.0-47.0); HEMOGLOBIN 8.1 g/dl (12.5-16.0); MEAN CORPUSCULAR HEMOGLOBIN 30 pg (27.0-31.0)
[2018-02-04 07:43] LABS: ALBUMIN 3.5 gm/dL (3.5-5.0); CALCIUM 9.5 mg/dL (8.4-10.2); CREATININE, serum 2.25 mg/dL (0.52-1.25); PHOSPHOROUS 4.8 mg/dL (2.5-4.5); POTASSIUM 3.9 mmol/L (3.4-5.0)
[2018-02-04 08:29] VITALS: BP 104/55; PULSE 58; TEMP 97.6
[2018-02-04 11:16] VITALS: BP 112/59; PULSE 67; TEMP 98.4
[2018-02-04 15:33] VITALS: BP 96/47; PULSE 77; TEMP 98.5
[2018-02-04] MEDS ORDERED: MELAT3MGTAB PO (20:06)
[2018-02-04 22:34] VITALS: BP 96/54; PULSE 74; TEMP 98.2
[2018-02-05] VITALS (7 sets, daily range): BP systolic 103–116; BP diastolic 50–75; PULSE 55–84; TEMP 97.6–98.5
[2018-02-05 06:44] LABS: BASO % 0.4 % (0.0-2.0); EOS # 0.3 (0.0-0.7); EOS % 4.4 % (0-4.0); GRAN # 4.9 (1.4-6.5); GRAN % 72.8 % (42.2-75.2); LYMPH # 1.1 (1.2-3.4); LYMPH % 15.7 % (20.0-51.0); MEAN CELL VOLUME 102 fl (80.0-100.0); MEAN CORPUSCULAR HGB CONC 30 g/dl (33.0-37.0); MEAN PLATELET VOLUME 11.1 fl (7.4-10.4); MONO # 0.4 (0.1-0.6); MONO % 6.4 % (1.7-9.3); PLATELET COUNT 161 K/mm3 (130-400); RED BLOOD COUNT 2.59 M/mm3 (4.10-5.30); REDCELL DISTRIBUTION WIDTH-CV 15.5 % (11.5-14.5)
[2018-02-05 06:49] LABS: INR 1.7 (0.8-3.0); PROTHROMBIN TIME 19.3 SECONDS (9.7-12.8)
[2018-02-05 06:53] LABS: ALBUMIN 3.3 gm/dL (3.5-5.0); CALCIUM 9.4 mg/dL (8.4-10.2); PHOSPHOROUS 4.2 mg/dL (2.5-4.5); POTASSIUM 4.2 mmol/L (3.4-5.0)
[2018-02-05 06:56] LABS: HEMATOCRIT 26.3 % (37.0-47.0); MEAN CORPUSCULAR HEMOGLOBIN 31 pg (27.0-31.0)
[2018-02-05 07:00] LABS: IRON,SERUM 30 ug/dL (35-150)
[2018-02-05 07:10] LABS: TOTAL IRON BINDING CAPACITY 298 ug/dL (265-497)
[2018-02-05 07:36] LABS: FERRITIN 50 ng/mL (11-264)
[2018-02-06 03:55] VITALS: BP 121/52; PULSE 63; TEMP 98.5
[2018-02-06 06:44] VITALS: BP 120/56; PULSE 72; TEMP 98.1
[2018-02-06 07:50] LABS: BASO % 0.1 % (0.0-2.0); EOS # 0.3 (0.0-0.7); EOS % 4.4 % (0-4.0); GRAN # 4.9 (1.4-6.5); GRAN % 70.9 % (42.2-75.2); LYMPH # 1.1 (1.2-3.4); LYMPH % 16.6 % (20.0-51.0); MEAN CELL VOLUME 103 fl (80.0-100.0); MEAN CORPUSCULAR HGB CONC 30 g/dl (33.0-37.0); MEAN PLATELET VOLUME 11.4 fl (7.4-10.4); MONO # 0.5 (0.1-0.6); MONO % 7.6 % (1.7-9.3); PLATELET COUNT 166 K/mm3 (130-400); RED BLOOD COUNT 2.69 M/mm3 (4.10-5.30); REDCELL DISTRIBUTION WIDTH-CV 15.5 % (11.5-14.5)
[2018-02-06 07:53] LABS: HEMATOCRIT 27.8 % (37.0-47.0); HEMOGLOBIN 8.2 g/dl (12.5-16.0); MEAN CORPUSCULAR HEMOGLOBIN 30 pg (27.0-31.0)
[2018-02-06 07:55] LABS: INR 1.6 (0.8-3.0); PROTHROMBIN TIME 17.8 SECONDS (9.7-12.8)
[2018-02-06 08:02] LABS: ALBUMIN 3.4 gm/dL (3.5-5.0); CALCIUM 9.9 mg/dL (8.4-10.2); CREATININE, serum 1.81 mg/dL (0.52-1.25); PHOSPHOROUS 3.7 mg/dL (2.5-4.5); POTASSIUM 4.2 mmol/L (3.4-5.0)
[2018-02-06] MEDS ORDERED: COUMADIN 5MG5 MG/TAB PO (11:27)
[2018-02-06] MEDS ORDERED: NATURAL IRON65 MG PO (11:29)
[2018-02-06] MEDS ORDERED: BUMEX0.5 MG PO (11:30)
[2018-02-06] MEDS ORDERED: MYLICON 8080 MG/TAB. PO (11:31)
== END 2018-02-06 13:45 | disposition home health service (06) | DRG 683 ==
LOC: COL.ER 14:02 → MEDICAL 16:07
PROVIDERS: Emergency Medicine; Internal Medicine; Internal Medicine Nephrology
DX: N17.9 Acute kidney failure, unspecified (principal); I50.32 Chronic diastolic (congestive) heart failure; I13.0 Hypertensive heart and chronic kidney disease with heart failure and stage 1 through stage 4 chronic kidney disease, or unspecified chronic kidney disease; I27.0 Primary pulmonary hypertension; Z66 Do not resuscitate; N18.4 Chronic kidney disease, stage 4 (severe); I48.91 Unspecified atrial fibrillation; Z79.01 Long term (current) use of anticoagulants; J44.9 Chronic obstructive pulmonary disease, unspecified; Z95.0 Presence of cardiac pacemaker; Z87.891 Personal history of nicotine dependence; Z95.2 Presence of prosthetic heart valve; D50.9 Iron deficiency anemia, unspecified; K21.9 Gastro-esophageal reflux disease without esophagitis
CPT/HCPCS: C9113; J2916; J7030

== ENCOUNTER 2018-02-21 15:12 | Emergency (ER) | payer MEDICARE ==
[~2018-02-21] VITALS: Ht 165.1 cm; Wt 79.5 kg
[~2018-02-21 15:12] MED LIST changes: +MELAT3MGTAB PO; +MYLICON 8080 MG/TAB. PO; +NATURAL IRON65 MG PO
[2018-02-21 16:14] LABS: BASO % 0.4 % (0.0-2.0); EOS # 0.1 (0.0-0.7); EOS % 1.7 % (0-4.0); GRAN # 6.1 (1.4-6.5); GRAN % 82.4 % (42.2-75.2); HEMATOCRIT 28.2 % (37.0-47.0); HEMOGLOBIN 8.2 g/dl (12.5-16.0); LYMPH # 0.7 (1.2-3.4); LYMPH % 8.9 % (20.0-51.0); MEAN CELL VOLUME 105 fl (80.0-100.0); MEAN CORPUSCULAR HEMOGLOBIN 30 pg (27.0-31.0); MEAN CORPUSCULAR HGB CONC 29 g/dl (33.0-37.0); MEAN PLATELET VOLUME 10.4 fl (7.4-10.4); MONO # 0.5 (0.1-0.6); MONO % 6.3 % (1.7-9.3); PLATELET COUNT 167 K/mm3 (130-400); RED BLOOD COUNT 2.69 M/mm3 (4.10-5.30); REDCELL DISTRIBUTION WIDTH-CV 16.3 % (11.5-14.5)
[2018-02-21 16:23] LABS: ALBUMIN 3.7 gm/dL (3.5-5.0); BILIRUBIN,TOTAL 0.3 mg/dL (0.0-1.0); CREATININE, serum 2.23 mg/dL (0.52-1.25); POTASSIUM 4.7 mmol/L (3.4-5.0); TOTAL PROTEIN 6.9 gm/dL (6.4-8.2)
[2018-02-21 16:25] LABS: INR 3.4 (0.8-3.0); PROTHROMBIN TIME 38.7 SECONDS (9.7-12.8)
[2018-02-21 16:47] LABS: TROPONIN-I 0.052 ng/mL (0.000-0.034)
[2018-02-21 17:00] VITALS: BP 130/78; PULSE 66; TEMP 98.6
== END 2018-02-21 17:30 | disposition home or self-care (01) ==
LOC: COL.ER 15:12
PROVIDERS: Family Medicine
DX: I50.9 Heart failure, unspecified (principal); N18.4 Chronic kidney disease, stage 4 (severe); Z79.01 Long term (current) use of anticoagulants
CPT/HCPCS: J1940

== ENCOUNTER 2018-03-24 08:00 | Outpatient (RCR) | payer MEDICARE ==
[~2018-03-24] VITALS: Ht 165.1 cm; Wt 75.5 kg
[2018-03-24] VITALS (10 sets, daily range): BP systolic 103–156; BP diastolic 40–65; PULSE 69–72; TEMP 97.5–98.2
[~2018-03-24 08:00] MED LIST changes: +MIRALAX PA17 GM/Dose PO
[2018-03-24] MEDS ORDERED: BUMEX2 MG PO (08:40)
[2018-03-24] MEDS ORDERED: TOPROL XL 25MG25 MG PO (09:23)
== END 2018-03-24 12:44 | disposition home or self-care (01) ==
LOC: EUO 08:00
DX: D64.9 Anemia, unspecified (principal); Z99.2 Dependence on renal dialysis
CPT/HCPCS: J7050; P9016

== ENCOUNTER 2018-04-02 20:48 | Inpatient (IN) | payer MEDICARE ==
[~2018-04-02] VITALS: Ht 165.1 cm; Wt 75.0 kg
[2018-04-02 23:07] VITALS: BP 140/59; PULSE 71; TEMP 98.7
[2018-04-02] MEDS ORDERED: ZOFRAN 4MG T4 MG/TAB PO (23:07)
[2018-04-02 23:08] VITALS: BP 140/59; PULSE 74; TEMP 98.7
[2018-04-02] MEDS ORDERED: REGLAN 5MG T5 MG/TAB PO (23:08)
[2018-04-02] MEDS ORDERED: TYLENOL 8 HR PO (23:08)
[2018-04-02] MEDS ORDERED: XANAX .25M0.25 MG/TA PO ×2 (23:10)
[2018-04-02] MEDS ORDERED: PRILOSEC 20MG20 MG PO (23:11)
[2018-04-02] MEDS ORDERED: ZYLOPRIM 100MG100 MG PO (23:11)
[2018-04-02] MEDS ORDERED: MIRALAX PA17 GM/Dose PO (23:12)
[2018-04-03] VITALS (7 sets, daily range): BP systolic 107–207; BP diastolic 44–140; PULSE 68–94; TEMP 97.3–98.2
[2018-04-03 08:14] LABS: BASO % 0.5 % (0.0-2.0); EOS # 0.1 (0.0-0.7); EOS % 1.2 % (0-4.0); GRAN # 4.4 (1.4-6.5); GRAN % 75.8 % (42.2-75.2); HEMOGLOBIN 10.9 g/dl (12.5-16.0); LYMPH # 0.9 (1.2-3.4); LYMPH % 15.4 % (20.0-51.0); MEAN CELL VOLUME 102 fl (80.0-100.0); MEAN CORPUSCULAR HEMOGLOBIN 31 pg (27.0-31.0); MEAN CORPUSCULAR HGB CONC 30 g/dl (33.0-37.0); MEAN PLATELET VOLUME 12.4 fl (7.4-10.4); MONO # 0.4 (0.1-0.6); MONO % 6.8 % (1.7-9.3); PLATELET COUNT 118 K/mm3 (130-400); RED BLOOD COUNT 3.55 M/mm3 (4.10-5.30); REDCELL DISTRIBUTION WIDTH-CV 17.3 % (11.5-14.5)
[2018-04-03 08:19] LABS: HEMATOCRIT 36.2 % (37.0-47.0)
[2018-04-03 08:21] LABS: INR 1.3 (0.8-3.0); PROTHROMBIN TIME 14.2 SECONDS (9.7-12.8)
[2018-04-03 08:25] LABS: CREATININE, serum 2.11 mg/dL (0.52-1.25); POTASSIUM 4.7 mmol/L (3.4-5.0)
[2018-04-04 04:26] VITALS: BP 121/51; PULSE 71; TEMP 98.2
[2018-04-04 07:08] LABS: HEMOGLOBIN 10.3 g/dl (12.5-16.0); MEAN CELL VOLUME 102 fl (80.0-100.0); MEAN CORPUSCULAR HEMOGLOBIN 30 pg (27.0-31.0); MEAN CORPUSCULAR HGB CONC 30 g/dl (33.0-37.0); MEAN PLATELET VOLUME 11.4 fl (7.4-10.4); PLATELET COUNT 116 K/mm3 (130-400); RED BLOOD COUNT 3.42 M/mm3 (4.10-5.30); REDCELL DISTRIBUTION WIDTH-CV 17.1 % (11.5-14.5)
[2018-04-04 07:09] LABS: HEMATOCRIT 34.9 % (37.0-47.0)
[2018-04-04 07:18] LABS: CALCIUM 9.5 mg/dL (8.4-10.2); CREATININE, serum 2.28 mg/dL (0.52-1.25); POTASSIUM 4.8 mmol/L (3.4-5.0)
[2018-04-04 07:59] LABS: BAND 8 % (0-10); LYMPHOCYTE 1 % (20.0-51.0); NEUTROPHILS 91 % (42.0-75.2); PLATELET ESTIMATE DECREASED (NORMAL)
[2018-04-04 08:00] LABS: HYPOCHROMIA 2+; TEAR DROP CELLS 1+
[2018-04-04 09:14] LABS: INR 1.2 (0.8-3.0); PROTHROMBIN TIME 13.8 SECONDS (9.7-12.8)
[2018-04-04 12:21] VITALS: BP 110/68; PULSE 73; TEMP 98.4
[2018-04-04 16:30] VITALS: BP 121/51; PULSE 82; TEMP 98
[2018-04-04 18:40] VITALS: BP 120/54; PULSE 71; TEMP 98.9
[2018-04-04 23:31] VITALS: BP 123/54; PULSE 69; TEMP 98.2
[2018-04-05] VITALS (7 sets, daily range): BP systolic 121–142; BP diastolic 54–64; PULSE 48–76; TEMP 97.7–98.5
[2018-04-05 07:42] LABS: HEMOGLOBIN 10.3 g/dl (12.5-16.0); MEAN CELL VOLUME 100 fl (80.0-100.0); MEAN CORPUSCULAR HEMOGLOBIN 30 pg (27.0-31.0); MEAN CORPUSCULAR HGB CONC 30 g/dl (33.0-37.0); MEAN PLATELET VOLUME 12.9 fl (7.4-10.4); PLATELET COUNT 135 K/mm3 (130-400); RED BLOOD COUNT 3.43 M/mm3 (4.10-5.30); REDCELL DISTRIBUTION WIDTH-CV 17.1 % (11.5-14.5)
[2018-04-05 07:46] LABS: INR 1.4 (0.8-3.0); PROTHROMBIN TIME 15.6 SECONDS (9.7-12.8)
[2018-04-05 07:47] LABS: CALCIUM 9.2 mg/dL (8.4-10.2); CREATININE, serum 1.9 mg/dL (0.52-1.25); POTASSIUM 4.5 mmol/L (3.4-5.0)
[2018-04-05 07:51] LABS: HEMATOCRIT 34.2 % (37.0-47.0)
[2018-04-05 08:07] LABS: BAND 3 % (0-10); LYMPHOCYTE 4 % (20.0-51.0); NEUTROPHILS 93 % (42.0-75.2); PLATELET ESTIMATE DECREASED (NORMAL)
[2018-04-05 08:08] LABS: HYPOCHROMIA 3+; STOMATOCYTE 1+
[2018-04-05] MEDS ORDERED: PREDNISONE10 MG PO (13:53)
[2018-04-05] MEDS ORDERED: ZITHROMAX 250M250 MG PO (13:55)
[2018-04-06 03:52] VITALS: BP 141/66; PULSE 70
[2018-04-06 08:00] VITALS: BP 144/64; PULSE 71; TEMP 98
[2018-04-06 08:16] LABS: HEMOGLOBIN 10.8 g/dl (12.5-16.0); MEAN CELL VOLUME 98 fl (80.0-100.0); MEAN CORPUSCULAR HEMOGLOBIN 30 pg (27.0-31.0); MEAN CORPUSCULAR HGB CONC 31 g/dl (33.0-37.0); MEAN PLATELET VOLUME 12.4 fl (7.4-10.4); PLATELET COUNT 126 K/mm3 (130-400); RED BLOOD COUNT 3.61 M/mm3 (4.10-5.30); REDCELL DISTRIBUTION WIDTH-CV 17.2 % (11.5-14.5)
[2018-04-06 08:17] LABS: HEMATOCRIT 35.3 % (37.0-47.0)
[2018-04-06 08:35] LABS: BAND 7 % (0-10); HYPOCHROMIA 1+; LYMPHOCYTE 3 % (20.0-51.0); METAMYELOCYTE 1 % (0-0); NEUTROPHILS 85 % (42.0-75.2); NUCLEATED RED BLOOD CELL 1 (0-6); PLATELET ESTIMATE DECREASED (NORMAL)
[2018-04-06 08:36] LABS: ANISOCYTOSIS 1+
[2018-04-06 10:00] LABS: ARTERIAL BLD GAS O2 SATURATION 96.9 % (92-100); ARTERIAL BLOOD GAS BASE EXCESS -0.5 (-2-2); ARTERIAL BLOOD GAS HCO3 25.5 meq/L (22-26); ARTERIAL BLOOD GAS PCO2 47.8 mmHg (35-45); ARTERIAL BLOOD GAS PO2 93.4 mmHg (80-100); ARTERIAL BLOOD GAS pH 7.35 (7.35-7.45)
[2018-04-06 11:39] VITALS: BP 159/78; PULSE 71; TEMP 97.9
[2018-04-06 15:57] VITALS: BP 136/73; PULSE 72; TEMP 98.2
[2018-04-06 20:46] VITALS: BP 175/101; PULSE 90; TEMP 98.7
[2018-04-06 23:28] VITALS: BP 125/50; PULSE 72; TEMP 98.4
[2018-04-07 03:50] VITALS: BP 128/57; PULSE 72; TEMP 98.1
[2018-04-07 06:14] LABS: HEMOGLOBIN 10.9 g/dl (12.5-16.0); MEAN CELL VOLUME 99 fl (80.0-100.0); MEAN CORPUSCULAR HEMOGLOBIN 30 pg (27.0-31.0); MEAN CORPUSCULAR HGB CONC 31 g/dl (33.0-37.0); MEAN PLATELET VOLUME 12.5 fl (7.4-10.4); PLATELET COUNT 133 K/mm3 (130-400); RED BLOOD COUNT 3.61 M/mm3 (4.10-5.30); REDCELL DISTRIBUTION WIDTH-CV 17.2 % (11.5-14.5)
[2018-04-07 06:16] LABS: HEMATOCRIT 35.6 % (37.0-47.0)
[2018-04-07 06:25] LABS: CALCIUM 9.1 mg/dL (8.4-10.2); CREATININE, serum 2.51 mg/dL (0.52-1.25); POTASSIUM 5.4 mmol/L (3.4-5.0)
[2018-04-07 06:31] LABS: INR 1.7 (0.8-3.0)
[2018-04-07 09:29] VITALS: BP 130/75; PULSE 80; TEMP 97.7
[2018-04-07 11:24] VITALS: BP 136/69; PULSE 73; TEMP 97.9
[2018-04-07 15:33] VITALS: BP 148/67; PULSE 70; TEMP 98
[2018-04-07 19:10] VITALS: BP 137/61; PULSE 70; TEMP 98.1
[2018-04-07 23:30] VITALS: BP 138/66; PULSE 71; TEMP 97.4
[2018-04-08 04:13] VITALS: BP 126/64; PULSE 75; TEMP 98.4
[2018-04-08 04:24] VITALS: BP 128/58; PULSE 75; TEMP 98.8
[2018-04-08 07:19] LABS: HEMOGLOBIN 10.5 g/dl (12.5-16.0); MEAN CELL VOLUME 99 fl (80.0-100.0); MEAN CORPUSCULAR HEMOGLOBIN 30 pg (27.0-31.0); MEAN CORPUSCULAR HGB CONC 31 g/dl (33.0-37.0); PLATELET COUNT 138 K/mm3 (130-400); RED BLOOD COUNT 3.48 M/mm3 (4.10-5.30); REDCELL DISTRIBUTION WIDTH-CV 17.2 % (11.5-14.5)
[2018-04-08 07:23] LABS: HEMATOCRIT 34.4 % (37.0-47.0)
[2018-04-08 07:35] LABS: ALBUMIN 3.5 gm/dL (3.5-5.0); CALCIUM 8.8 mg/dL (8.4-10.2); CREATININE, serum 2.1 mg/dL (0.52-1.25); PHOSPHOROUS 3.5 mg/dL (2.5-4.5); POTASSIUM 5.1 mmol/L (3.4-5.0)
[2018-04-08 07:50] VITALS: BP 141/72; PULSE 73; TEMP 98.6
[2018-04-08 10:52] VITALS: BP 128/63; PULSE 68; TEMP 97.7
== END 2018-04-08 11:32 | DRG 189 ==
LOC: MEDICAL 20:48
PROVIDERS: Internal Medicine; Internal Medicine Critical Care Medicine
PROC: 5A1D70Z Performance of Urinary Filtration, Intermittent, Less than 6 Hours Per Day (ICD-10-PCS; principal; 2018-04-04)
PROC: 5A1D70Z Performance of Urinary Filtration, Intermittent, Less than 6 Hours Per Day (ICD-10-PCS; 2018-04-07)
DX: J96.22 Acute and chronic respiratory failure with hypercapnia (principal); N18.6 End stage renal disease; J44.1 Chronic obstructive pulmonary disease with (acute) exacerbation; I50.32 Chronic diastolic (congestive) heart failure; I13.2 Hypertensive heart and chronic kidney disease with heart failure and with stage 5 chronic kidney disease, or end stage renal disease; Z66 Do not resuscitate; Z99.2 Dependence on renal dialysis; Z95.0 Presence of cardiac pacemaker; I27.20 Pulmonary hypertension, unspecified; Z79.01 Long term (current) use of anticoagulants; Z87.891 Personal history of nicotine dependence; I48.91 Unspecified atrial fibrillation; Z95.2 Presence of prosthetic heart valve; D63.1 Anemia in chronic kidney disease
CPT/HCPCS: 99232-AI; J0456; J2920; J7050

== ENCOUNTER → 2018-04-26 | Outpatient (REF) ==
[~2018-04-26] MED LIST changes: +PREDNISONE10 MG PO; +REGLAN 5MG T5 MG/TAB PO; +TYLENOL 8 HR PO; +XANAX .25M0.25 MG/TA PO; +ZITHROMAX 250M250 MG PO; +ZOFRAN 4MG T4 MG/TAB PO; +ZYLOPRIM 100MG100 MG PO
[2018-04-26 06:55] LABS: COLLECTION METHOD RANDOM VOIDED
[2018-04-26 07:39] LABS: AMORPHOUS CRYSTAL Present /uL; HYALINE CAST >12 /lpf; MUCOUS Present /lpf; PH 5 (5-8); URINE APPEARANCE Turbid; URINE BACTERIA Many /hpf; URINE BILIRUBIN Negative (NEGATIVE); URINE BLOOD 3+ (NEGATIVE); URINE COLOR Amber; URINE GLUCOSE Negative (NEGATIVE); URINE KETONE Negative (NEGATIVE); URINE LEUKOCYTE ESTERASE 3+ (NEGATIVE); URINE NITRATE Negative (NEGATIVE); URINE PROTEIN(semi-quant) 2+ (NEGATIVE); URINE RBC >50 /hpf; URINE WBC >50 /hpf
== END ==
LOC: ZCOL.LAB 06:54
PROVIDERS: Emergency Medicine
DX: I50.9 Heart failure, unspecified (principal)

== ENCOUNTER → 2018-05-07 | Outpatient (REF) ==
[2018-05-07 21:38] LABS: COLLECTION METHOD CLEAN CATCH
[2018-05-07 21:55] LABS: HYALINE CAST >12 /lpf; MUCOUS Present /lpf; PH 5 (5-8); URINE APPEARANCE Cloudy; URINE BACTERIA Many /hpf; URINE BILIRUBIN Negative (NEGATIVE); URINE BLOOD 1+ (NEGATIVE); URINE COLOR Amber; URINE GLUCOSE Negative (NEGATIVE); URINE KETONE Negative (NEGATIVE); URINE LEUKOCYTE ESTERASE 2+ (NEGATIVE); URINE NITRATE Negative (NEGATIVE); URINE PROTEIN(semi-quant) 1+ (NEGATIVE)
== END ==
LOC: ZCOL.LAB 21:37 → ZLAB.WCH 21:37
PROVIDERS: Emergency Medicine
DX: N39.0 Urinary tract infection, site not specified (principal)

== ENCOUNTER → 2018-05-16 | Outpatient (CLI) | payer MEDICARE ==
[~2018-05-16] MED LIST changes: +MELATONIN3 MG PO
[2018-05-16 14:26] LABS: ARTERIAL BLD GAS O2 SATURATION 96.1 % (92-100); ARTERIAL BLD GAS TCO2 CT 25.3; ARTERIAL BLOOD GAS BASE EXCESS -4.9 (-2-2); ARTERIAL BLOOD GAS HCO3 23.5 meq/L (22-26); ARTERIAL BLOOD GAS PCO2 59.5 mmHg (35-45); ARTERIAL BLOOD GAS PO2 93.9 mmHg (80-100); ARTERIAL BLOOD GAS pH 7.21 (7.35-7.45)
== END ==
LOC: COL.PUL 13:30
PROVIDERS: Emergency Medicine
DX: R41.0 Disorientation, unspecified (principal)

== ENCOUNTER 2018-05-17 13:49 | Inpatient (IN) | payer MEDICARE ==
[~2018-05-17] VITALS: Ht 165.1 cm; Wt 75.0 kg
[2018-05-17] VITALS (337 sets, daily range): BP systolic 96–140; BP diastolic 54–94; PULSE 69–74; TEMP 97.4–97.6; O2SAT 36–100
[~2018-05-17 13:49] MED LIST changes: -MELATONIN3 MG PO
[2018-05-17 14:50] LABS: BASO % 0.3 % (0.0-2.0); EOS % 0.2 % (0-4.0); GRAN # 8.5 (1.4-6.5); GRAN % 82.7 % (42.2-75.2); HEMATOCRIT 41.1 % (37.0-47.0); HEMOGLOBIN 12.1 g/dl (12.5-16.0); LYMPH % 9.2 % (20.0-51.0); MEAN CELL VOLUME 107 fl (80.0-100.0); MEAN CORPUSCULAR HEMOGLOBIN 32 pg (27.0-31.0); MEAN CORPUSCULAR HGB CONC 29 g/dl (33.0-37.0); MEAN PLATELET VOLUME 10.4 fl (7.4-10.4); MONO # 0.5 (0.1-0.6); MONO % 5.2 % (1.7-9.3); PLATELET COUNT 151 K/mm3 (130-400); RED BLOOD COUNT 3.83 M/mm3 (4.10-5.30); REDCELL DISTRIBUTION WIDTH-CV 19.8 % (11.5-14.5)
[2018-05-17 15:02] LABS: ALBUMIN 3.8 gm/dL (3.5-5.0); BILIRUBIN,TOTAL 0.4 mg/dL (0.0-1.0); CALCIUM 9.3 mg/dL (8.4-10.2); CREATININE, serum 2.82 mg/dL (0.52-1.25); MAGNESIUM 2.1 mg/dL (1.6-2.3); PHOSPHOROUS 4.4 mg/dL (2.5-4.5); POTASSIUM 4.7 mmol/L (3.4-5.0); TOTAL PROTEIN 6.6 gm/dL (6.4-8.2)
[2018-05-17 15:16] LABS: TROPONIN-I 0.086 ng/mL (0.000-0.034)
[2018-05-17] MEDS ORDERED: MIRAPEX0.5 MG PO (15:43)
[2018-05-17] MEDS ORDERED: MELATONIN3 MG PO (15:49)
[2018-05-17] MEDS ORDERED: ZAROXOLYN 2.52.5 MG PO (15:49)
--- NOTE | 2018-05-17 17:30 | NUR ---
Pt arrived to ICU bed 7 from ER via bed. Pt on Bipap at this time. Opens eyes to name. Answers yes/no to simple questions. Squeezes hands on command. Denies any pain at this time. Lung sounds clear, diminished throughout. Candida bipap well. Pt denies any SOB. 16 fr abdi catheter placed for accurate I/Os. Clear, yellow urine out. Bilat LE with 3+ pitting edema. Family at bedside. Updated on pt status and plan of care.
[2018-05-17 18:01] LABS: INR 1.6 (0.8-3.0); PROTHROMBIN TIME 18.4 SECONDS (9.7-12.8)
[2018-05-17 18:13] LABS: ARTERIAL BLD GAS O2 SATURATION 98.2 % (92-100); ARTERIAL BLD GAS TCO2 CT 24.2; ARTERIAL BLOOD GAS BASE EXCESS -5.5 (-2-2); ARTERIAL BLOOD GAS HCO3 22.5 meq/L (22-26); ARTERIAL BLOOD GAS PCO2 55.4 mmHg (35-45); ARTERIAL BLOOD GAS pH 7.23 (7.35-7.45)
[2018-05-17 18:14] LABS: ARTERIAL BLOOD GAS PO2 154.2 mmHg (80-100)
--- NOTE | 2018-05-17 19:15 | NUR ---
Bedside report given to BELL Osuna. Pt SBP 80s. HR Vpaced 60s. Pt more drowsy when first arrived in unit. Squeezes hands on command. No verbal response to questions. Remains on Bipap mask. O2 sat 99%. Dr Cobb at bedside.
[2018-05-17 19:37] LABS: ARTERIAL BLD GAS O2 SATURATION 97.8 % (92-100); ARTERIAL BLD GAS TCO2 CT 23.5; ARTERIAL BLOOD GAS BASE EXCESS -5.6 (-2-2); ARTERIAL BLOOD GAS HCO3 21.9 meq/L (22-26); ARTERIAL BLOOD GAS PCO2 51.9 mmHg (35-45); ARTERIAL BLOOD GAS PO2 132.9 mmHg (80-100); ARTERIAL BLOOD GAS pH 7.24 (7.35-7.45)
--- NOTE | 2018-05-17 20:00 | NUR ---
UPON SHIFT CHANGE PT WAS LETHARGIC AND NOT RESPONDING TO DAYSHIFT NURSE. AROUND APPROXIMATELY 2000 PT CAME AROUND AND WAS MORE AROUSABLE. PER PROVIDER, PT NOT TO HAVE PO MEDS. PT ABLE TO FOLLOW COMMANDS AND COMMUNICATE DISCOMFORT IN BILAT LEGS. PT UNABLE TO PROVIDE PAIN SCALE. PT ANSWERED ALL, BUT ONE ORIENTATION QUESTION CORRECT. PT IS SITTING UPRIGHT IN HIGH SEMI-FOWLERS SHE STATES IT IS MORE COMFORTABLE. PT OFFERED COLD ORAL SWAB, PT TOLERATED WELL.
--- NOTE | 2018-05-17 23:15 | NUR ---
PT IS AWAKE. BIPAP BRIEFLY REMOVED, PT SPO2 93% ON RA. PT VERBALIZING SHE IS HUNGRY, A&O X3. EYES OPEN. PT DENIES PAIN OTHER THAN CHRONIC PAIN IN BILAT LEGS. PT GIVEN ORAL SPONGE WITH WATER AND ICE CHIPS - PT TOLERATED WELL. PT PLACED BACK ON BIPAP, SPO2 100%. TV TURNED ON PER PT REQUEST. PT SITTING COMFORTABLY IN BED ON LEFT SIDE.
[2018-05-18] VITALS (519 sets, daily range): BP systolic 110–133; BP diastolic 47–67; PULSE 69–76; TEMP 97.4–98.3; O2SAT 64–100
--- NOTE | 2018-05-18 | NUR ---
PT TURNED TO LEFT SIDE. PT DENIES PAIN. PT THIRSTY AND PROVIDED ICE CHIPS - PT TOLERATED WELL. WHEN TURNED PT'S BOTTOM WAS CLEANED WITH CLENSING WIPES. BARRIER CREAM APPLIED TO PRESSURE ULCER ON BOTTOM AND SILICONE PRESSSURE ULCER PAD APPLIED OVER.
[2018-05-18 05:56] LABS: ARTERIAL BLD GAS O2 SATURATION 96.4 % (92-100); ARTERIAL BLD GAS TCO2 CT 24.8; ARTERIAL BLOOD GAS BASE EXCESS -3.8 (-2-2); ARTERIAL BLOOD GAS HCO3 23.2 meq/L (22-26); ARTERIAL BLOOD GAS PCO2 50.7 mmHg (35-45); ARTERIAL BLOOD GAS PO2 95.8 mmHg (80-100); ARTERIAL BLOOD GAS pH 7.28 (7.35-7.45)
[2018-05-18 06:56] LABS: HEMATOCRIT 40.7 % (37.0-47.0); HEMOGLOBIN 12.1 g/dl (12.5-16.0); MEAN CELL VOLUME 106 fl (80.0-100.0); MEAN CORPUSCULAR HEMOGLOBIN 32 pg (27.0-31.0); MEAN CORPUSCULAR HGB CONC 30 g/dl (33.0-37.0); MEAN PLATELET VOLUME 10.4 fl (7.4-10.4); PLATELET COUNT 121 K/mm3 (130-400); RED BLOOD COUNT 3.84 M/mm3 (4.10-5.30); REDCELL DISTRIBUTION WIDTH-CV 19.3 % (11.5-14.5)
--- NOTE | 2018-05-18 07:00 | NUR ---
Bedside report received from BELL Osuna. Plan of Care reviewed. Patient currently on Bipap. Care assumed
[2018-05-18 07:04] LABS: ALBUMIN 3.6 gm/dL (3.5-5.0); BILIRUBIN,TOTAL 0.4 mg/dL (0.0-1.0); CALCIUM 9.4 mg/dL (8.4-10.2); CREATININE, serum 2.85 mg/dL (0.52-1.25); INR 1.5 (0.8-3.0); MAGNESIUM 2.2 mg/dL (1.6-2.3); PHOSPHOROUS 4.6 mg/dL (2.5-4.5); POTASSIUM 5.1 mmol/L (3.4-5.0); PROTHROMBIN TIME 17.5 SECONDS (9.7-12.8); TOTAL PROTEIN 6.3 gm/dL (6.4-8.2)
[2018-05-18 07:24] LABS: ANISOCYTOSIS 1+; BAND 1 % (0-10); LYMPHOCYTE 9 % (20.0-51.0); NEUTROPHILS 87 % (42.0-75.2); PLATELET ESTIMATE DECREASED (NORMAL)
[2018-05-18 07:25] LABS: STOMATOCYTE 1+
--- NOTE | 2018-05-18 08:29 | NUR ---
Patient takes break from bipap at this time. She eats breakfast and is placed on 2 Liters N/c. will continue to monitor
--- NOTE | 2018-05-18 10:14 | NUR ---
DR. KING HERE TO SEE PATIENT. PLAN FOR DIALYSIS TODAY
[2018-05-18] MEDS ORDERED: COUMADIN 3MG3 MG/TAB PO (10:18)
--- NOTE | 2018-05-18 11:04 | NUR ---
Patient plans to return to [facility] but would like to be screened for [facility] to transfer. Met with PT and daughter Papo -dpOA. SW recieved consult for PAC- PT indicated that she is recieving care that is subpar and is not happy with current placement. PT reports the use of a wheelchair daily for mobility, uses nebi 4x daily at placement. Pt indicated that she use O2 daily and will needs a Bypap machine. [facility] provides medications. Pt indicated that she has dialysis services and it may take up tp two hours to be transported. Action: SW awaiting screen for [facility], Need orders for Bypap if Dc with one, and PCP is Dr. Turner but pt see Dr. Fregoso due to placement.
--- NOTE | 2018-05-18 15:55 | NUR ---
REPORT CALLED TO BELL SORIANO
--- NOTE | 2018-05-18 18:35 | NUR ---
Pt arrived to room 313 via with yahaira Marcos. Pt transferred from the WC to the floor bed with the assistance of one. Pt oriented to room and call light system. Pt is sitting up in the bed watching TV at this time and she denies further needs. Call light within reach.
--- NOTE | 2018-05-18 19:28 | NUR ---
Report given to BELL Conklin.
--- NOTE | 2018-05-18 22:48 | NUR ---
Pt resting in bed, shift assessments complete, left Pt bed in lowest position, call light in reach, questions answered.
[2018-05-19] VITALS (7 sets, daily range): BP systolic 105–160; BP diastolic 46–65; PULSE 50–79; TEMP 97.7–98.4
[2018-05-19 04:58] LABS: COLLECTION METHOD CLEAN CATCH
[2018-05-19 05:22] LABS: HYALINE CAST >12 /lpf; MUCOUS Present /lpf; PH 5 (5-8); SQUAMOUS EPITHELIAL 0-2 /hpf; URINE APPEARANCE Hazy; URINE BACTERIA None Seen /hpf; URINE BILIRUBIN Negative (NEGATIVE); URINE BLOOD 3+ (NEGATIVE); URINE COLOR Yellow; URINE GLUCOSE Negative (NEGATIVE); URINE KETONE Negative (NEGATIVE); URINE LEUKOCYTE ESTERASE 1+ (NEGATIVE); URINE NITRATE Negative (NEGATIVE); URINE PROTEIN(semi-quant) 1+ (NEGATIVE); URINE RBC >50 /hpf; URINE UROBILINOGEN Negative (NEGATIVE)
--- NOTE | 2018-05-19 05:27 | NUR ---
Pt slept on and off throughout the night, no C/O pain, Pt did not tolerate the BIPAP well she did wear it for some of the night.
[2018-05-19 07:26] LABS: INR 1.5 (0.8-3.0); PROTHROMBIN TIME 16.8 SECONDS (9.7-12.8)
--- NOTE | 2018-05-19 07:56 | NUR ---
Pt is awake and A/Ox4, sitting up in bed eating breakfast. Saline lock to left wrist is without complications. Dialysis port to right upper chest noted. Pt remains on 2L O2 via NC, resp. are even and unlabored. Gamez cath to DD is without complications. Pt denies any needs. Call light is within reach.
--- NOTE | 2018-05-19 10:35 | NUR ---
Pt is sitting up in recliner. Pt denies any other needs at this time. Call light is within reach.
--- NOTE | 2018-05-19 14:26 | NUR ---
First visit from the cnc maintenance mechanic. prayed with patient. No other needs right now.
--- NOTE | 2018-05-19 15:45 | NUR ---
Verena, at [facility], reports that the patient needs to only be on the bipap at night for sleep apnea for them to accept the patient. Verena reports they cannot accept the patient if she is using the bipap intermittently throughout the day. CARINE then met with the patient's daughter and son to inform. The patient's daughter requested that SW find out if [facility] can accept the patient if she is using the bipap throughout the day. CARINE contacted and faxed a referral to Oliver at [facility]. Oliver reports that they can rent a CPAP for the patient, but would need to know the settings, if she were to discharge on one. CARINE has also faxed updates to Verena at [facility] and Shane at [facility]. The patient's daughter and son were interested in speaking to palliative care nurse, Magalys, on goals of care. CARINE informed the patient's nurse and will continue to follow.
--- NOTE | 2018-05-19 18:30 | NUR ---
Pt has had an overall uneventful shift.
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
--- NOTE | 2018-05-19 20:36 | NUR ---
pt requested having both rales on bed up.
--- NOTE | 2018-05-20 01:42 | NUR ---
pt resting in bed. reports no pain. wanted bipap taken off. no needs at this time. call light in reach
--- NOTE | 2018-05-20 03:25 | NUR ---
pt resting. repositioned pt. reports no pain. no needs at this time.call light in reach
[2018-05-20 03:32] VITALS: BP 129/59; PULSE 70; TEMP 97.9
--- NOTE | 2018-05-20 05:43 | NUR ---
pt had an uneventful night. no pain. nausea at about 0500, meds given. iv started in right hand by BELL [place]. right forarm IV removed by Mary Kay LUU, catheter tip intact. pt wore bipap for some of the night. no needs at this time. call light in reach
[2018-05-20 06:07] LABS: INR 1.9 (0.8-3.0); PROTHROMBIN TIME 21.9 SECONDS (9.7-12.8)
[2018-05-20 06:10] LABS: HEMOGLOBIN 11.1 g/dl (12.5-16.0); MEAN CELL VOLUME 105 fl (80.0-100.0); MEAN CORPUSCULAR HEMOGLOBIN 32 pg (27.0-31.0); MEAN CORPUSCULAR HGB CONC 30 g/dl (33.0-37.0); MEAN PLATELET VOLUME 10.4 fl (7.4-10.4); PLATELET COUNT 120 K/mm3 (130-400); REDCELL DISTRIBUTION WIDTH-CV 19.4 % (11.5-14.5)
[2018-05-20 06:17] LABS: CALCIUM 9.1 mg/dL (8.4-10.2); CREATININE, serum 2.81 mg/dL (0.52-1.25); POTASSIUM 5.2 mmol/L (3.4-5.0)
[2018-05-20 06:18] LABS: HEMATOCRIT 36.7 % (37.0-47.0)
[2018-05-20 07:06] LABS: ANISOCYTOSIS 1+; BAND 1 % (0-10); HYPOCHROMIA 2+; LYMPHOCYTE 1 % (20.0-51.0); NEUTROPHILS 96 % (42.0-75.2); PLATELET ESTIMATE DECREASED (NORMAL); TOXIC GRANULATION PRESENT
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
[2018-05-20 08:00] VITALS: BP 138/49; PULSE 75; TEMP 98.4
--- NOTE | 2018-05-20 08:43 | NUR ---
Assessment complete.patient awake,a/ox4.denies pain or discomfort at this time.crackles aus. to bilat lung bases.oxygen at 2l/nc and stats at 97%.VSS.denies SOB.abdi catheter in place and draining adequately.4+ pitting edema to BLE.all meds given.no other concerns voiced.call light in reach
[2018-05-20 16:00] VITALS: BP 131/50; PULSE 71; TEMP 98.4
--- NOTE | 2018-05-20 19:06 | NUR ---
patient resting in recliner.all meds given.denies any concerns at this time.bruises to bilat upper extremities.abdi in place and draining adequately.oxygen on at 3l/nc.will continue to monitor.call light in reach report given to BELL Muñiz
[2018-05-20 20:14] VITALS: BP 139/51; PULSE 73; TEMP 98.4
--- NOTE | 2018-05-20 23:14 | NUR ---
PT RESTING IN CHAIR a+ox4. iv started in left forarm, left wrist infultrated, no fluids running. catheter tip intact. hard pump appeared in right arm, flushed IV, does not increase in size. significant bruising on upper right arm. briusing throughout both forarms. no pain. no SOA. reports no needs at this time. call light in reach
--- NOTE | 2018-05-20 23:49 | NUR ---
this nurse placed a wamr pack and a compression band on right forarm bump.
[2018-05-21 00:47] VITALS: BP 127/55; PULSE 72; TEMP 97.4
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
[2018-05-21 03:20] VITALS: BP 149/65; PULSE 72; TEMP 97.6
--- NOTE | 2018-05-21 04:17 | NUR ---
turning Q2. pt reports nausea at 0315, prn meds given. no other needs at this time.
--- NOTE | 2018-05-21 05:40 | NUR ---
pt did not sleep well during the night. c/o pain from her coccyx, turning q2. barrier cream applied. c/o stomach ach. reports no needs at this time. call light in reach
[2018-05-21 06:20] LABS: PROTHROMBIN TIME 22.6 SECONDS (9.7-12.8)
--- NOTE | 2018-05-21 07:00 | NUR ---
Report received from BELL Muñiz. pt in bed resting, wants to get up to chair, SBA. Doing well, will continue to monitor.
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
--- NOTE | 2018-05-21 09:23 | NUR ---
Pt is sleeping at this time and did not awaken when I spoke to her. She is lightly snoring and no family is in the room.
[2018-05-21 10:05] VITALS: BP 134/51; PULSE 78; TEMP 97.1
--- NOTE | 2018-05-21 11:21 | NUR ---
Initial visit; Patient and family thanked Payroll Benefits Administrator for stopping in and offering God's blessings. Payroll Benefits Administrator will follow up.
--- NOTE | 2018-05-21 11:46 | NUR ---
CARINE met with the patient and patient's daughter to give an update on referrals. The patient's daughter reports that they are actually interested in [facility] now, due to having a family member that works there and knowing some of the residents. The patient's daughter also had questions about buying a CPAP machine for the patient. CARINE informed the patient's daughter that she would speak to [facility] on what they would prefer. CARINE attempted to contact Sherrill at [facility]. CARINE left a voicemail and faxed the referral. SW awaiting their screening.
[2018-05-21 13:03] VITALS: BP 132/44; PULSE 70; TEMP 97.8
--- NOTE | 2018-05-21 14:18 | NUR ---
Pt requesting help with swallowing, talked with ST and they will evaluate in am.
--- NOTE | 2018-05-21 15:23 | NUR ---
Cynthia, at [facility], reports that they do not have any female beds available at this time. CARINE has contacted and faxed updates to [facility]. SW awaiting their response.
--- NOTE | 2018-05-21 15:35 | NUR ---
Met with pt, her and her two adult children including Thesa, DPOA-HC. Pt reports she is not ready to stop dialysis, she is enjoying living her life and would like to move to a different facility if possible. Family would like for her care to focus on comfort but are not willing to stop dialysis.
[2018-05-21 18:08] VITALS: BP 146/55; PULSE 73; TEMP 98.2
--- NOTE | 2018-05-21 19:35 | NUR ---
Pt has done well today, up to commode as needed. Rested in chairs on ipllows today for comfort and back in bed for this evening. Denies pain. requesting ST to see her tomorrow for swallowing and requesting help with wax build up in ears for hearing, passed onto nightshift who will resume care.
[2018-05-21 21:49] VITALS: BP 136/56; PULSE 71; TEMP 97.5
[2018-05-22] VITALS (7 sets, daily range): BP systolic 119–152; BP diastolic 46–69; PULSE 62–77; TEMP 97.5–99
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
[2018-05-22 07:14] LABS: PROTHROMBIN TIME 23.1 SECONDS (9.7-12.8)
--- NOTE | 2018-05-22 07:55 | NUR ---
Assessment complete.patient awake,alert and oriented x4.denies pain or discomfort at this time.oxygen at 2l/nc.breathing even and unlabored.lungs sounds diminished throughout.BLE 3+ pitting edema.abdi catheter in place and draining adequately.patient denies any other concerns at this time.will continue to monitor.call light in reach
[2018-05-22 09:22] LABS: HEMOGLOBIN 11.1 g/dl (12.5-16.0); MEAN CELL VOLUME 103 fl (80.0-100.0); MEAN CORPUSCULAR HEMOGLOBIN 32 pg (27.0-31.0); MEAN CORPUSCULAR HGB CONC 31 g/dl (33.0-37.0); MEAN PLATELET VOLUME 11.4 fl (7.4-10.4); PLATELET COUNT 132 K/mm3 (130-400); RED BLOOD COUNT 3.49 M/mm3 (4.10-5.30); REDCELL DISTRIBUTION WIDTH-CV 19.6 % (11.5-14.5)
[2018-05-22 09:34] LABS: ALBUMIN 3.4 gm/dL (3.5-5.0); CALCIUM 8.7 mg/dL (8.4-10.2); CREATININE, serum 3.31 mg/dL (0.52-1.25); PHOSPHOROUS 6.1 mg/dL (2.5-4.5); POTASSIUM 5.1 mmol/L (3.4-5.0)
--- NOTE | 2018-05-22 11:25 | NUR ---
Recieved phone call from Erika, daughter, that they are willing to go to which ever place could take their Mom first. Advised at this point we are waiting on [facility]'s decision and that [facility] could not take her at this time. She requested that we make sure she has the equipment ordered that she will need.
--- NOTE | 2018-05-22 15:50 | NUR ---
Vanessa, at [facility], reports that they can accept the patient for a skilled stay. SW informed the patient and patient's . They report they are agreeable to going there upon discharge. SW to continue to follow.
--- NOTE | 2018-05-22 18:04 | NUR ---
PATIENT HAS HAD AN UNEVENFUL DAY.TOLERATED DIALYSIS WELL.BREATHING EVEN AND UNLABORED.EGD SCHEDULED FOR TOMORROW.PATIENT NOTIFIED.PATIENT TO BE NPO AFTER MIDNIGHT.NO OTHER CONCERNS VOICED AT THIS TIME.CALL LIGHT IN REACH
--- NOTE | 2018-05-22 22:31 | NUR ---
PT resting A+Ox4. reports no pain, some SOA when talking. pt shift assessment complete. consent signed. no needs, call light in reach
--- NOTE | 2018-05-23 02:21 | NUR ---
turning pt q2. reports some pain, prn pain meds given
[2018-05-23 03:12] VITALS: BP 125/52; PULSE 69; TEMP 98.5
[2018-05-23 06:24] LABS: INR 2.2 (0.8-3.0); PROTHROMBIN TIME 24.5 SECONDS (9.7-12.8)
--- NOTE | 2018-05-23 06:32 | NUR ---
pt felt restless throughout night. tele called in senior director finance "pt in v fib" during transfering to chair. EKG ordered, vitals taken, called CHRISTA Crouch, Dr. Wynn contacted. moved pt back to bed. pacer was assessed, and sent to pacer analysis. pt reported feeling "funny and worn out". pt reported some stomach pain, "it may be just gas." meds help this morning d/t procedure- pt can only take meds with puddy. turned Q2. no needs at this time. call light in reach. bed alarm on.
--- NOTE | 2018-05-23 07:03 | NUR ---
pt bruising has increased on her left arm. bruising throughout
[2018-05-23 07:54] VITALS: BP 133/57; PULSE 71; TEMP 98.3
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
[2018-05-23 11:00] VITALS: BP 124/64; PULSE 77; TEMP 97.1
--- NOTE | 2018-05-23 14:18 | NUR ---
PATIENT JUST RETURNED TO ROOM FROM EGD.RESTING IN RECLINER AT THIS TIME.VSS.DENIES NEEDS.WILL CONTINUE TO MONITOR.CALLL LIGHT IN REACH
[2018-05-23 14:24] VITALS: BP 139/63; PULSE 77
[2018-05-23 15:46] VITALS: BP 149/51; PULSE 80; TEMP 98.4
[2018-05-23] MEDS ORDERED: REGLAN 5MG T5 MG/TAB PO (15:53)
[2018-05-23] MEDS ORDERED: PREDNISONE10 MG PO ×2 (15:54→16:28)
--- NOTE | 2018-05-23 16:05 | NUR ---
CARINE provided the patient's bipap settings to Vanessa at [facility]. Vanessa reports that they have received the bipap. The patient is to discharge today, 05/23, to [facility] for a skilled stay. Transportation was set for 1615, via [facility]. CARINE informed the patient, patient's family, and the patient's nurse. They were all in agreeance. CARINE also presented and explained the IM form to the patient and patient's family. The patient verbalized understanding, signed, and she was provided a copy. No additional needs at this time.
[2018-05-23 16:17] VITALS: BP 149/51; PULSE 80; TEMP 98.4
--- NOTE | 2018-05-23 16:40 | NUR ---
PATIENT DISCHARGE TO [facility] AT THIS TIME.ALL DISCHARGE PAPERWORK GIVEN TO RUBY ENGINEER. ACCOMPANYING PATIENT TO LONG-TERM.ALL BELONGINGS TAKEN.IV,LINARES AND TELEMETRY DISCONTINUED.REPORT CALLED TO BELL JACKSON.ALL QUESTIONS ANSWERED.
== END 2018-05-23 16:50 | DRG 291 ==
LOC: COL.ER 13:49 → ICU 16:02 → MEDICAL 16:02
PROVIDERS: Emergency Medicine; Internal Medicine Critical Care Medicine; Internal Medicine Nephrology; Physician Assistant; ADMIT Internal Medicine
PROC: 5A1D70Z Performance of Urinary Filtration, Intermittent, Less than 6 Hours Per Day (ICD-10-PCS; principal; 2018-05-17)
PROC: 0DJ08ZZ Inspection of Upper Intestinal Tract, Via Natural or Artificial Opening Endoscopic (ICD-10-PCS; 2018-05-23)
DX: I13.2 Hypertensive heart and chronic kidney disease with heart failure and with stage 5 chronic kidney disease, or end stage renal disease (principal); J96.21 Acute and chronic respiratory failure with hypoxia; N18.6 End stage renal disease; I50.33 Acute on chronic diastolic (congestive) heart failure; P72.2 Other transitory neonatal disorders of thyroid function, not elsewhere classified; J44.1 Chronic obstructive pulmonary disease with (acute) exacerbation; G93.49 Other encephalopathy; Z66 Do not resuscitate; Z51.5 Encounter for palliative care; Z95.4 Presence of other heart-valve replacement; K21.9 Gastro-esophageal reflux disease without esophagitis; Z95.0 Presence of cardiac pacemaker; Z87.891 Personal history of nicotine dependence; R13.10 Dysphagia, unspecified; K22.2 Esophageal obstruction; K29.70 Gastritis, unspecified, without bleeding; K44.9 Diaphragmatic hernia without obstruction or gangrene; I48.2 Chronic atrial fibrillation; Z79.01 Long term (current) use of anticoagulants; R53.81 Other malaise
CPT/HCPCS: 99223-AI; 99232-AI; 99233-AI; 99239; C1726; G8978-GP; G8979-GP; J0456; J1940; J2250; J2405; J2704; J2920; J2930; J7050; J7120

== ENCOUNTER → 2018-05-25 | Outpatient (REF) ==
[~2018-05-25] MED LIST changes: +MELATONIN3 MG PO
[2018-05-25 14:33] LABS: COLLECTION METHOD CLEAN CATCH
[2018-05-25 14:50] LABS: AMORPHOUS CRYSTAL Present /uL; MUCOUS Present /lpf; PH 5 (5-8); URINE APPEARANCE Cloudy; URINE BACTERIA Rare /hpf; URINE BILIRUBIN Negative (NEGATIVE); URINE BLOOD 2+ (NEGATIVE); URINE COLOR Yellow; URINE GLUCOSE Negative (NEGATIVE); URINE KETONE Negative (NEGATIVE); URINE LEUKOCYTE ESTERASE 3+ (NEGATIVE); URINE NITRATE Negative (NEGATIVE); URINE PROTEIN(semi-quant) 1+ (NEGATIVE); URINE UROBILINOGEN Negative (NEGATIVE); URINE WBC >50 /hpf
== END ==
LOC: ZCOL.LAB 14:31
PROVIDERS: Internal Medicine
DX: R30.0 Dysuria (principal); R39.11 Hesitancy of micturition

== ENCOUNTER → 2018-05-26 | Outpatient (CLI) | payer MEDICARE ==
[2018-05-26 16:05] LABS: GRAN # 3.7 (1.4-6.5); GRAN % 88.8 % (42.2-75.2); LYMPH # 0.3 (1.2-3.4); MEAN CELL VOLUME 107 fl (80.0-100.0); MEAN CORPUSCULAR HGB CONC 30 g/dl (33.0-37.0); MEAN PLATELET VOLUME 12.5 fl (7.4-10.4); MONO # 0.2 (0.1-0.6); PLATELET COUNT 50 K/mm3 (130-400); RED BLOOD COUNT 2.15 M/mm3 (4.10-5.30); REDCELL DISTRIBUTION WIDTH-CV 19.1 % (11.5-14.5)
[2018-05-26 16:11] LABS: MEAN CORPUSCULAR HEMOGLOBIN 32 pg (27.0-31.0)
[2018-05-26 16:16] LABS: HEMOGLOBIN 6.9 g/dl (12.5-16.0)
[2018-05-26 18:53] LABS: BASO # 0.1 (0.0-0.2); BASO % 0.6 % (0.0-2.0); GRAN % 86.3 % (42.2-75.2); HEMATOCRIT 44.6 % (37.0-47.0); LYMPH % 8.4 % (20.0-51.0); MEAN CORPUSCULAR HGB CONC 31 g/dl (33.0-37.0); MEAN PLATELET VOLUME 12.6 fl (7.4-10.4); MONO # 0.5 (0.1-0.6); MONO % 4.2 % (1.7-9.3); PLATELET COUNT 120 K/mm3 (130-400); RED BLOOD COUNT 4.37 M/mm3 (4.10-5.30); REDCELL DISTRIBUTION WIDTH-CV 18.9 % (11.5-14.5)
[2018-05-26 18:56] LABS: MEAN CELL VOLUME 102 fl (80.0-100.0); MEAN CORPUSCULAR HEMOGLOBIN 32 pg (27.0-31.0)
== END ==
LOC: ZCOL.LAB 15:49
PROVIDERS: Internal Medicine
DX: D63.1 Anemia in chronic kidney disease (principal); E87.5 Hyperkalemia

== ENCOUNTER 2018-05-28 10:10 | Emergency (ER) | payer MEDICARE ==
[~2018-05-28] VITALS: Ht 157.5 cm; Wt 77.3 kg
[2018-05-28 10:10] VITALS: TEMP 97.6
[2018-05-28 10:50] LABS: ARTERIAL BLD GAS O2 SATURATION 97.3 % (92-100); ARTERIAL BLD GAS TCO2 CT 20.5; ARTERIAL BLOOD GAS BASE EXCESS -8.4 (-2-2); ARTERIAL BLOOD GAS PCO2 46.7 mmHg (35-45); ARTERIAL BLOOD GAS PO2 107.6 mmHg (80-100); ARTERIAL BLOOD GAS pH 7.23 (7.35-7.45)
[2018-05-28 10:54] LABS: MEAN CELL VOLUME 102 fl (80.0-100.0); MEAN CORPUSCULAR HGB CONC 31 g/dl (33.0-37.0); MEAN PLATELET VOLUME 11.8 fl (7.4-10.4); PLATELET COUNT 82 K/mm3 (130-400); RED BLOOD COUNT 3.51 M/mm3 (4.10-5.30); REDCELL DISTRIBUTION WIDTH-CV 19.5 % (11.5-14.5)
[2018-05-28 10:55] LABS: HEMATOCRIT 35.7 % (37.0-47.0); HEMOGLOBIN 11.1 g/dl (12.5-16.0); MEAN CORPUSCULAR HEMOGLOBIN 32 pg (27.0-31.0)
[2018-05-28 11:07] LABS: ALBUMIN 3.2 gm/dL (3.5-5.0); BILIRUBIN,TOTAL 0.4 mg/dL (0.0-1.0); CALCIUM 9.3 mg/dL (8.4-10.2); TOTAL PROTEIN 6.1 gm/dL (6.4-8.2)
[2018-05-28 11:10] LABS: CREATININE, serum 4.8 mg/dL (0.52-1.25)
[2018-05-28 11:11] LABS: POTASSIUM 5.8 mmol/L (3.4-5.0)
[2018-05-28 11:20] LABS: BAND 2 % (0-10); DOHLE BODIES PRESENT; LYMPHOCYTE 3 % (20.0-51.0); NEUTROPHILS 91 % (42.0-75.2); PLATELET ESTIMATE DECREASED (NORMAL)
[2018-05-28 11:25] LABS: ANISOCYTOSIS 2+
[2018-05-28] MEDS ORDERED: PREDNISONE 5MG5 MG PO (11:48)
[2018-05-28 11:50] LABS: C-REACTIVE PROTEIN 49.8 mg/dL (0.0-0.9)
[2018-05-28] MEDS ORDERED: ROCEPHIN VIA1 G/VIAL IM (11:54)
[2018-05-28] MEDS ORDERED: ULTRAM 50MG TAB50 MG PO (11:57)
[2018-05-28] MEDS ORDERED: ALMACONE 360 M360 ML PO (11:58)
[2018-05-28 12:07] LABS: INR 1.6 (0.8-3.0); PROTHROMBIN TIME 18.4 SECONDS (9.7-12.8)
[2018-05-28 13:01] VITALS: BP 105/57; PULSE 70
== END 2018-05-28 13:01 | disposition short-term general hospital (02) ==
LOC: COL.ER 10:10
PROVIDERS: Family Medicine
DX: L03.114 Cellulitis of left upper limb (principal); J44.9 Chronic obstructive pulmonary disease, unspecified; E11.22 Type 2 diabetes mellitus with diabetic chronic kidney disease; I12.0 Hypertensive chronic kidney disease with stage 5 chronic kidney disease or end stage renal disease; N18.6 End stage renal disease; Z95.0 Presence of cardiac pacemaker; Z79.82 Long term (current) use of aspirin
CPT/HCPCS: C1751; J2543; J3010; J3370; J7030; J7050